=== PATIENT | male | born 1960 | race Caucasian/White ===

== ENCOUNTER 2021-06-03 18:50 | Inpatient (IN) | payer MEDICARE ==
[~2021-06-03] VITALS: Ht 177.8 cm; Wt 91.1 kg
[2021-06-03] MEDS ORDERED: methylPREDNISolone 125MG 2ML VIAL IV ONE (20:35)
[2021-06-03 20:49] LABS: BASO % 0.3 % (0.0-1.0); HEMATOCRIT 43.3 % (42.0-52.0); HEMOGLOBIN 15.1 g/dl (13.5-17.5); LYMPH # 0.6 10^3/uL (1.5-5.0); LYMPH % 5.5 % (24.0-44.0); MEAN CORPUSCULAR HEMOGLOBIN 31.5 pg (27.0-33.0); MEAN CORPUSCULAR HGB CONC 34.9 g/dl (32.0-36.5); MEAN CORPUSCULAR VOLUME 90.2 fl (80.0-96.0); MONO # 0.3 10^3/uL (0.0-0.8); MONO % 2.9 % (2.0-8.0); NEUTROPHILS # 9.5 10^3/uL (1.5-8.5); NEUTROPHILS % 88.7 % (36.0-66.0); PLATELET COUNT, AUTOMATED 243 10^3/uL (150-450); WHITE BLOOD COUNT 10.7 10^3/uL (4.0-10.0)
[2021-06-03] MEDS: COMBIVENT RESPIMAT 100-20MCG INHALER 4GM INH SCH ×3 (20:50→22:04)
[2021-06-03 20:53] LABS: RSV AMPLIFICATION NEGATIVE (NEGATIVE)
[2021-06-03 20:55] LABS: ALT/SGPT 237 U/L (12-78); BILIRUBIN,DIRECT 0.7 MG/DL (0.0-0.2); BILIRUBIN,TOTAL 1.1 MG/DL (0.2-1.0); BLOOD UREA NITROGEN 25 MG/DL (7-18); CALCIUM LEVEL 8.8 MG/DL (8.8-10.2); CARBON DIOXIDE LEVEL 25 MEQ/L (21-32); CHLORIDE LEVEL 98 MEQ/L (98-107); CREATININE FOR GFR 1.28 MG/DL (0.70-1.30); GLOMERULAR FILTRATION RATE > 60.0 (>49); GLUCOSE, FASTING 141 MG/DL (70-100); NT-PRO BNP 38 PG/ML (<125); SODIUM LEVEL 131 MEQ/L (136-145)
--- NOTE | 2021-06-03 21:00 | REP ---
INDICATION: DYSPNEA/COUGH COMPARISON: None. TECHNIQUE: Portable AP view of the chest FINDINGS: The mediastinum and cardiac silhouette are stable and within normal limits for portable technique. Bilateral infiltrates (left greater than right) noted. No effusion. No pneumothorax. Skeletal structures are intact. IMPRESSION: Multifocal infiltrates (left greater than right). <Electronically signed by Brando Douglas > 06/03/21 [id number]
[2021-06-03 22:07] LABS: ABG BASE EXCESS -0.5 (-2.0-2.0); ABG HCO3 20.9 MEQ/L (22.0-26.0); ABG O2 SATURATION 90.2 % (95.0-99.0); ABG PARTIAL PRESSURE CO2 26.5 mmHg (35.0-45.0); ABG PARTIAL PRESSURE O2 51.6 mmHg (75.0-100.0); ABG STANDARD HCO3 23.9 MEQ/L (22.0-26.0); ABG TOTAL CO2 21.7 MEQ/L (23.0-31.0); ABG pH (ARTERIAL) 7.514 UNITS (7.350-7.450)
[2021-06-03] MEDS ORDERED: ALEV220T22 PO (23:07)
[2021-06-03] MEDS ORDERED: [UNRECOGNIZED DRUG - CODE] PO (23:07)
[2021-06-03] MEDS ORDERED: ZINC1TAB2 PO (23:07)
[2021-06-03] MEDS ORDERED: C 50TAB PO (23:07)
[2021-06-03] MEDS ORDERED: D31000TA2 PO (23:07)
[2021-06-03] MEDS ORDERED: FAMO20TA PO (23:07)
[2021-06-03] MEDS ORDERED: HOME MED LIST COMPLETE! XX SCH (23:10)
--- NOTE | 2021-06-03 23:29 | HPEPDOC ---
[facility] Medical History & Physical Date of Admission Jun 03, 2021 Date of Service: Jun 03, 2021 Attending Physician: REMI SANTILLAN MD History and Physical TIME OF SERVICE: 1135pm CHIEF COMPLAINT: shortness of breath HISTORY OF PRESENT ILLNESS: a 60 yr old M presented w c/o shortness of breath, dry cough, a fever for about 10 days. He denies having n/v/d, loss of his sense of smell or taste. Several of his relatives have had mild COVID and their symptoms resolved, his symptoms didnt improve so he came to the ER. Neither he or his family members received COVID vaccines. 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 FAMILY HISTORY: reviewed with patient (both his parents who are in their 80s are still alive. ALLERGIES: Please see below. HOME MEDICATIONS: Please see below. PHYSICAL EXAMINATION: Vital Signs Date Time Temp Pulse Resp B/P (MAP) Pulse Ox O2 Delivery O2 Flow Rate FiO2 06/03/21 18:51 99.4 150 28 132/87 (102) 84 Room Air 06/03/21 20:35 6.0 99 GENERAL APPEARANCE: well-nourished and developed /NAD HEENT: EOMI / MM pink but dry / NC in place CARDIOVASCULAR: tachycardic / NMRG LUNGS: coughing occasionally / not using accessory muscles / air entry equal bi laterally / lungs are CTAB ABDOMEN: contour convex MUSCULOSKELETAL: NCAT INTEGUMENT: he is not pale, flushed or diaphoretic NEUROLOGICAL: CN 2-12 grossly intact /speech not dysarthric PSYCHIATRIC: A&Ox 3 able to understand and follow all commands. LABORATORY DATA: IMAGING: Chest xray IMPRESSION: Multifocal infiltrates (left greater than right). MICROBIOLOGY: COVID + ASSESSMENT: is a 60 yr old M w a hx of obesity who is admitted for hypoxemia 2/2 COVID 19 PNA. PLAN: 1 Hypoxemia 2/2 COVID-19 ABG reviewed Plan: admit to PCU / continuous pulse ox / supplemental O2 (target O2 sats between 92-95%) / contact & air borne precautions / instructed the patient to lie down in a prone position as much as possible / f/u repeat plts (if low indicates bad prognosis), CRP (if high indicates bad prognosis), INR, BMP (40% of pts with COVID develop EULALIA) , INR, D-dimer, PT, PTT, fibrinogen (if patient has DIC indicates bad prognosis), ferritin, LDH, troponins (if elevated will need Echo to r/o viral cardiomyopathy) / despite the infiltrates on chest xray I think this is a viral PNA, I doubt he has superimposed bacterial PNA bc he doesnt have a fever or leucocytosis nevertheless we will check pro-calcitonin / blood cx are pending / albuterol PRN for dyspnea / dexamethasone & Remdesivir / will ask the day time team to consult the Pulmonology service to start Baricitinib or or Tocilizumab & because he is already on HFNC and at high risk of deteriorating 2 SIRS He has tachycardia and tachypnea that are likely reactive due to the viral infection. The lactic acid is wnl Plan: monitor vitals / IVF / f/u procalcitonin and blood cx 3 Class 1 obesity -complicates care Plan: check A1C to screen for DM DVT px w medium dose ASA and Lovenox pending Coag studies Dispo: home after at least 2 midnights stay Home Medications Scheduled Ascorbic Acid (Vitamin C) 500 Mg Tablet, 500 MG PO DAILY Cholecalciferol (Vitamin D3) (Vitamin D3) 1,000 Unit Tablet, 1,000 UNITS PO DAILY Famotidine (Famotidine) 20 Mg Tablet, 40 MG PO QHS Multivit-Min/Ascorbic/Herb 124 (Airborne Chewable Tablet) 250 Mg-87.5 Mg Tab.chew, 1 CHEW PO DAILY Zinc (Zinc) 50 Mg Tablet, 50 MG PO DAILY Scheduled PRN Naproxen Sodium (Aleve) 220 Mg Tablet, 220 MG PO BID PRN for FEVER Allergies Coded Allergies: No Known Allergies (Unverified , 06/03/21) A-FIB/CHADSVASC A-FIB History Current/History of A-Fib/PAF?: No Current PO Anticoag Therapy: No REMI SANTILLNA MD Jun 03, 2021 23:29
[2021-06-04] VITALS (13 sets, daily range): BP systolic 113–130; BP diastolic 60–83; O2SAT 87–97
[2021-06-04] MEDS ORDERED: SODIUM CHLORIDE 0.9% 1000ML IV STA (00:29)
[2021-06-04] MEDS ORDERED: ALBUTEROL 90 MCG/ACT 8GM HFA INHALER INH PRN (00:30)
[2021-06-04 01:17] LABS: MAGNESIUM LEVEL 1.7 MG/DL (1.8-2.4)
[2021-06-04 01:35] LABS: APPEARANCE, URINE CLEAR (CLEAR); BACTERIA, URINE AUTO NEGATIVE (NEGATIVE); BILIRUBIN, URINE AUTO NEGATIVE (NEGATIVE); BLOOD, URINE BLOOD 2+ (NEGATIVE); COLOR, URINE YELLOW (YELLOW); GLUCOSE, URINE (UA) AUTO NEGATIVE (NEGATIVE); KETONE, URINE AUTO NEGATIVE (NEGATIVE); LEUKOCYTE ESTERASE, URINE AUTO NEGATIVE (NEGATIVE); NITRITE, URINE AUTO NEGATIVE (NEGATIVE); PROTEIN, URINE AUTO 2+ mg/dL (NEGATIVE); RBC, URINE AUTO 0 /HPF (0-3); SPECIFIC GRAVITY URINE AUTO 1.014 (1.002-1.035); SQUAMOUS EPITHELIAL CELL UR AU 0 /HPF (0-6); UROBILINOGEN, URINE AUTO 0.2 mg/dL (0.0-2.0); WBC, URINE AUTO 2 /HPF (0-3)
[2021-06-04 03:06] LABS: FERRITIN 15546 NG/ML (26-388)
[2021-06-04] MEDS ORDERED: REMDESIVIR 200 MG in NS 250 ML IV ONE (05:00)
[2021-06-04 06:29] LABS: BASO % 0.3 % (0.0-1.0); HEMATOCRIT 39.4 % (42.0-52.0); HEMOGLOBIN 13.6 g/dl (13.5-17.5); LYMPH # 0.5 10^3/uL (1.5-5.0); LYMPH % 4.8 % (24.0-44.0); MEAN CORPUSCULAR HEMOGLOBIN 31.1 pg (27.0-33.0); MEAN CORPUSCULAR HGB CONC 34.5 g/dl (32.0-36.5); MONO # 0.3 10^3/uL (0.0-0.8); MONO % 2.8 % (2.0-8.0); NEUTROPHILS # 8.5 10^3/uL (1.5-8.5); NEUTROPHILS % 89.3 % (36.0-66.0); PLATELET COUNT, AUTOMATED 225 10^3/uL (150-450); RED BLOOD COUNT 4.38 10^6/uL (4.30-6.10); WHITE BLOOD COUNT 9.5 10^3/uL (4.0-10.0)
--- NOTE | 2021-06-04 06:42 | ECGEPIP ---
[facility] - ED Test Date: 2021-06-03 Pat Name: Umesh Clancy Department: Room: - Gender: Male State Manager: lexi : 1960 Requested By: RADHA Rankin Order Number: [id number] Reading MD: David Gonzalez Measurements Intervals [place] Rate: 131 P: 22 WA: 138 QRS: -36 QRSD: 86 T: -12 QT: 308 QTc: 454 Interpretive Statements Sinus tachycardia Left axis deviation INCOMPLETE RIGHT BUNDLE BRANCH BLOCK Minimal voltage criteria for LVH, may be normal variant ( R in aVL ) NO PRIORS FOR COMPARISON Electronically Signed on 06-04-2021 6:41:58 EST by David Gonzalez
[2021-06-04 06:44] LABS: INR 1.06; PROTHROMBIN TIME 14.2 SECONDS (12.7-14.5)
[2021-06-04 06:45] LABS: PARTIAL THROMBOPLASTIN TIME 41.6 SECONDS (25.9-37.0)
[2021-06-04 06:47] LABS: D-DIMER QUANT 1756.47 ng/ml (<500)
[2021-06-04 06:55] LABS: BLOOD UREA NITROGEN 20 MG/DL (7-18); CARBON DIOXIDE LEVEL 23 MEQ/L (21-32); CHLORIDE LEVEL 103 MEQ/L (98-107); CREATININE FOR GFR 1.08 MG/DL (0.70-1.30); GLOMERULAR FILTRATION RATE > 60.0 (>49); GLUCOSE, FASTING 213 MG/DL (70-100); MAGNESIUM LEVEL 2.4 MG/DL (1.8-2.4); SODIUM LEVEL 134 MEQ/L (136-145)
[2021-06-04 06:56] LABS: HEMOGLOBIN A1c 5.6 %
[2021-06-04] MEDS ORDERED: SODIUM CHLORIDE 0.9% INJ 10 ML SYR IV ONE (07:00)
[2021-06-04] MEDS: BENZONATATE 100MG CAPSULE PO SCH ×3 (07:10→21:57)
[2021-06-04] MEDS: ASPIRIN 81MG ENTERIC TABLET PO SCH (08:40)
[2021-06-04] MEDS: BARICITINIB 2MG TABLET (OLUMIANT) FOR EUA PO SCH (08:41)
[2021-06-04] MEDS: ENOXAPARIN 60MG/0.6ML SYRINGE (J1650 PER 10MG) SC SCH ×2 (08:41→21:58)
[2021-06-04] MEDS: dexameTHASONE 4 MG/ML 1ML VIAL (J1100 PER 1MG) IV SCH (08:41)
[2021-06-04] MEDS: cefTRIAXone SOD 2 GM in D5W MINI-BAG PLUS 50 ML IV SCH (11:05)
[2021-06-04] MEDS: AZITHROMYCIN INJ 500 MG, VIAL MATE ADAPTER 1 EACH in NS 250 ML IV SCH (11:36)
--- NOTE | 2021-06-04 13:28 | IPNPDOC ---
Text Note Date of Service The patient was seen on 06/04/21. NOTE Subjective: Patient is a 60-year-old male who presented to the hospital with chief complaint of shortness of breath and a dry cough and fever for about 10 days. Patient denies any nausea, vomiting, diarrhea nor has he lost his sense of smell or taste. Patient has several relatives with mild Covid and they are since resolved, his symptoms did not improve so he came to the emergency department. Either he or his family members have received Covid vaccines. Patient states he is feeling well today but is requiring max Vapotherm to maintain oxygen saturations above 90%. Review of systems: General: Patient denies fevers HEENT: Patient denies headaches Cardiovascular: Patient denies chest pain Respiratory: Patient denies shortness of breath, cough GI: Patient denies abdominal pain, nausea, vomiting, diarrhea : Patient denies increased frequency or pain with urination Extremities: Patient denies swelling or pain in extremities Neurological: Patient denies numbness or tingling in legs Physical exam: Vitals: See below General: Alert and oriented male patient who was laying prone when I walked in talking with his fiance on the phone. Patient did not appear to be in any acute distress. HEENT: Normocephalic, atraumatic, moist mucous membranes. Neck: No lymphadenopathy or thyromegaly Cardiac: Regular rate and rhythm, no murmurs, normal S1, normal S2 Pulm: Clear to auscultation bilaterally. No wheezes, rhonchi, rales Abd: Nondistended, nontender to palpation, normal bowel sounds Ext: No edema bilateral lower extremities Labs: See below Imaging: No new imaging is been performed, chest x-ray from the evening before was reviewed and was reported to show multifocal infiltrates (left greater than right) Assessment/plan: 60-year-old male with a history of obesity is admitted for acute hypoxic respiratory failure secondary COVID-19 pneumonia 1. Acute hypoxic respiratory failure secondary to COVID-19 pneumonia. Patient will continue with remdesivir, dexamethasone, and baricitinib. We will continue to monitor the patient's oxygen saturation. Strongly encouraged the patient to prone as much as possible. I explained the reasoning and the benefits of proning to the patient. Patient has an elevated procalcitonin so ceftriaxone azithromycin have been started at this time. We will continue to monitor patient patient does state that if he gets to the point where he needs to be intubated, he will except as per patient. 2. SIRS criteria. Patient was tachycardic and tachypneic likely reactive due to viral infection. Lactic acid within normal limits. Patient did receive sepsis fluid bolus in the emergency department. 3. Class I obesity which is complicating the patient's care. DVT Prophylaxis: Lovenox Disposition: Pending improvement in oxygenation. VS,Fishbone, I+O VS, Fishbone, I+O Laboratory Tests 06/03/21 19:53 06/04/21 05:44 Vital Signs Date Time Temp Pulse Resp B/P (MAP) Pulse Ox O2 Delivery O2 Flow Rate FiO2 06/04/21 12:00 40.0 100 06/04/21 12:00 98.0 111 21 129/65 (86) 92 HVNI-Vapotherm FERDINANDMENDEL Jun 04, 2021 13:28
[2021-06-04] MEDS ORDERED: CALCIUM CARBONATE 500 MG CHEW U/D PO ONE (17:00)
[2021-06-04] MEDS ORDERED: VANCOMYCIN HCL 1,000 MG, VIAL MATE ADAPTER 1 EACH in NS 250 ML IV ONE (21:00)
--- NOTE | 2021-06-04 21:01 | ECGEPIP ---
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
[2021-06-05] VITALS (16 sets, daily range): BP systolic 117–139; BP diastolic 59–90; O2SAT 83–99
[2021-06-05] MEDS: REMDESIVIR 100 MG in NS 250 ML IV SCH (04:15)
[2021-06-05] MEDS: BENZONATATE 100MG CAPSULE PO SCH ×3 (05:53→20:31)
[2021-06-05] MEDS: SODIUM CHLORIDE 0.9% INJ 10 ML SYR IV SCH (05:53)
[2021-06-05 08:31] LABS: INR 1.03; PROTHROMBIN TIME 13.9 SECONDS (12.7-14.5)
[2021-06-05 08:32] LABS: PARTIAL THROMBOPLASTIN TIME 37.2 SECONDS (25.9-37.0)
[2021-06-05] MEDS: dexameTHASONE 4 MG/ML 1ML VIAL (J1100 PER 1MG) IV SCH (08:35)
[2021-06-05] MEDS: ASPIRIN 81MG ENTERIC TABLET PO SCH (08:35)
[2021-06-05] MEDS: BARICITINIB 2MG TABLET (OLUMIANT) FOR EUA PO SCH (08:35)
[2021-06-05] MEDS: ENOXAPARIN 60MG/0.6ML SYRINGE (J1650 PER 10MG) SC SCH ×2 (08:36→20:32)
[2021-06-05] MEDS ORDERED: PANTOPRAZOLE 40MG TAB (PROTONIX) PO SCH (09:00)
[2021-06-05 09:20] LABS: ALBUMIN 2.3 GM/DL (3.2-5.2); BILIRUBIN,DIRECT 0.3 MG/DL (0.0-0.2); BILIRUBIN,TOTAL 0.5 MG/DL (0.2-1.0); TOTAL PROTEIN 5.9 GM/DL (6.4-8.2)
[2021-06-05] MEDS: cefTRIAXone SOD 2 GM in D5W MINI-BAG PLUS 50 ML IV SCH (11:54)
[2021-06-05] MEDS: AZITHROMYCIN INJ 500 MG, VIAL MATE ADAPTER 1 EACH in NS 250 ML IV SCH (13:09)
[2021-06-05] MEDS: CALCIUM CARBONATE 500 MG CHEW U/D PO PRN ×2 (13:41→20:31)
--- NOTE | 2021-06-05 15:16 | IPNPDOC ---
Text Note Date of Service The patient was seen on 06/05/21. NOTE Subjective: Patient is a 60-year-old male presented to hospital with chief complaint shortness of breath and dry cough and a fever for about 10 days. Says he is feeling better. Patient was diagnosed with COVID-19. Patient is on Vapotherm therapy and has been proning. Patient denies losing his sense of smell or taste. Patient is not vaccinated and does have multiple sick contacts. Review of systems: General: Patient denies fevers HEENT: Patient denies headaches Cardiovascular: Patient denies chest pain Respiratory: Patient reports dry cough but does not feel short of breath GI: Patient denies abdominal pain, nausea, vomiting, diarrhea : Patient denies increased frequency or pain with urination Extremities: Patient denies swelling or pain in extremities Neurological: Patient denies numbness or tingling in legs Physical exam: Vitals: See below General: Alert and oriented male patient who was laying on his left side when I walked into the room. Patient had Vapotherm nasal cannula oxygen in place and did not appear to be in any acute distress. HEENT: Normocephalic, atraumatic, moist mucous membranes. Neck: No lymphadenopathy or thyromegaly Cardiac: Regular rate and rhythm, no murmurs, normal S1, normal S2 Pulm: Clear to auscultation bilaterally. No wheezes, rhonchi, rales Abd: Nondistended, nontender to palpation, normal bowel sounds Ext: No edema bilateral lower extremities Labs: See below Imaging: No new imaging is been performed Assessment/plan: 60-year-old male with a history of obesity was admitted for acute hypoxic respiratory failure secondary to COVID-19 pneumonia 1. Acute hypoxic respiratory failure secondary to COVID-19 pneumonia. Continue with remdesivir, dexamethasone and baricitinib. Continue to monitor patient's oxygen saturations. Strongly encourage the patient to prone as much as possible. I explained the reasoning and the benefits of proning to the patient. Patient had an elevated procalcitonin so ceftriaxone azithromycin have been started at this time. Continue to monitor the patient. 2. SIRS criteria. Patient was tachycardic and tachypneic likely reactive due to viral infection however, patient does have bacteremia although the results of the cultures are still pending. Patient has a normal lactic acid and did receive sepsis bolus in the emergency department. 3. Bacteremia with 2 blood cultures positive for gram-positive cocci in pairs and clusters. Repeat blood cultures were ordered and performed. Vancomycin has been given to the patient. We will continue to monitor. 4. Class I obesity, complicating the patient's care DVT Prophylaxis: Lovenox Disposition: Pending improvement in oxygenation VS,Fishbone, I+O VS, Fishbone, I+O Vital Signs Date Time Temp Pulse Resp B/P (MAP) Pulse Ox O2 Delivery O2 Flow Rate FiO2 06/05/21 12:00 90 HVNI-Vapotherm 35.0 100 06/05/21 11:54 97.6 101 20 117/60 (79) I&O- Last 24 Hours up to 6 AM 06/05/21 06:00 Intake Total 2335 ml Output Total 1875 ml Balance [address]RE[address]ER DO Jun 05, 2021 15:16
[2021-06-06] VITALS (8 sets, daily range): BP systolic 123–139; BP diastolic 63–90; O2SAT 92–96
[2021-06-06] MEDS: REMDESIVIR 100 MG in NS 250 ML IV SCH (05:15)
[2021-06-06] MEDS: BENZONATATE 100MG CAPSULE PO SCH ×3 (05:15→20:28)
[2021-06-06] MEDS: SODIUM CHLORIDE 0.9% INJ 10 ML SYR IV SCH (05:16)
[2021-06-06] MEDS: CALCIUM CARBONATE 500 MG CHEW U/D PO PRN ×3 (05:31→20:28)
[2021-06-06 09:16] LABS: BLOOD UREA NITROGEN 26 MG/DL (7-18); CALCIUM LEVEL 8.2 MG/DL (8.8-10.2); CARBON DIOXIDE LEVEL 24 MEQ/L (21-32); CHLORIDE LEVEL 107 MEQ/L (98-107); CREATININE FOR GFR 0.91 MG/DL (0.70-1.30); GLOMERULAR FILTRATION RATE > 60.0 (>49); GLUCOSE, FASTING 131 MG/DL (70-100); MAGNESIUM LEVEL 2.5 MG/DL (1.8-2.4); POTASSIUM SERUM 5.5 MEQ/L (3.5-5.1); SODIUM LEVEL 139 MEQ/L (136-145)
[2021-06-06] MEDS: ASPIRIN 81MG ENTERIC TABLET PO SCH (09:41)
[2021-06-06] MEDS: ENOXAPARIN 60MG/0.6ML SYRINGE (J1650 PER 10MG) SC SCH ×2 (09:41→20:28)
[2021-06-06] MEDS: BARICITINIB 2MG TABLET (OLUMIANT) FOR EUA PO SCH (09:41)
[2021-06-06] MEDS: dexameTHASONE 4 MG/ML 1ML VIAL (J1100 PER 1MG) IV SCH (09:41)
[2021-06-06] MEDS: PANTOPRAZOLE 40MG TAB (PROTONIX) PO SCH (09:41)
[2021-06-06] MEDS: cefTRIAXone SOD 2 GM in D5W MINI-BAG PLUS 50 ML IV SCH (09:42)
--- NOTE | 2021-06-06 10:34 | IPNPDOC ---
Text Note Date of Service The patient was seen on 06/06/21. NOTE Subjective: Patient is a 60-year-old male presented hospital chief complaint shortness of breath and dry cough with a fever for about 10 days prior to his admission. He says he is feeling better today. Patient was diagnosed with COVID-19. Patient has been on Vapotherm therapy and has been proning. Patient denies loss of sense of smell or taste. Patient is not vaccinated does have multiple sick contacts. Earlier this morning, patient did have an episode of acute hypoxia while on maxed those Vapotherm and did require a nonrebreather mask be placed over his Vapotherm. Patient did recover and had been doing better later on in the morning. Review of systems: General: Patient denies fevers HEENT: Patient denies headaches Cardiovascular: Patient denies chest pain Respiratory: Patient reports mild shortness of breath GI: Patient denies abdominal pain, nausea, vomiting, diarrhea : Patient denies increased frequency or pain with urination Extremities: Patient denies swelling or pain in extremities Neurological: Patient denies numbness or tingling in legs Physical exam: Vitals: See below General: Alert and oriented male patient who was laying on his left side when I walked in the room. Patient Vapotherm nasal cannula oxygen with nonrebreather mask on walked in. Patient did not appear to be in any acute distress. HEENT: Normocephalic, atraumatic, moist mucous membranes. Neck: No lymphadenopathy or thyromegaly Cardiac: Regular rate and rhythm, no murmurs, normal S1, normal S2 Pulm: Clear to auscultation bilaterally. No wheezes, rhonchi, rales Abd: Nondistended, nontender to palpation, normal bowel sounds Ext: No edema bilateral lower extremities Labs: See below Imaging: No new imaging is been performed Assessment/plan: 60-year-old male with a history of obesity was admitted for acute hypoxic respiratory failure secondary to COVID-19 pneumonia 1. Acute hypoxic respiratory failure secondary to COVID-19 pneumonia. Continue remdesivir, dexamethasone and baricitinib. Continue to monitor the patient's oxygen saturation. Patient had nonrebreather oxygen on when I walked into the room. I did remove this and patient's oxygen saturations remained in the low 90s. Patient was encouraged to prone as much as possible and can be upright for about 20 minutes at a time before going back to proning. The more the patient prone is the better off his outcome will most likely be. I again encouraged the patient to try and spend most of the day on his stomach today. Patient was doing well with just max Vapotherm well proning and saturating in the mid 90s. Continue ceftriaxone and azithromycin at this time due to elevated procalcitonin. 2. SIRS criteria. Patient has been mildly tachycardic and tachypneic which is likely due to viral infection although patient does have bacteremia and the results of the cultures are pending. Normal lactic acid. 3. Bacteremia with 2 blood cultures positive for gram-positive cocci in pairs and clusters. Repeat blood cultures have been ordered and are performed. Vancomycin was started. 4. Transaminitis. This may be secondary to COVID-19 infection. This is decreased and we will continue to monitor. 5. Hyperkalemia. Patient does have hyperkalemia on labs today however, the specimen appeared hemolyzed. We will repeat the potassium level today. DVT Prophylaxis: Lovenox Disposition: Pending improvement patient's oxygenation. Patient status is tenuous at this time but I do not believe he needs ICU level care and once he is requiring Vapotherm with nonrebreather to maintain oxygen saturations above 90%. If this is the case, patient will be transferred to the ICU. VS,Anselmo, I+O VSAnselmo, I+O Laboratory Tests 06/06/21 07:20 Vital Signs Date Time Temp Pulse Resp B/P (MAP) Pulse Ox O2 Delivery O2 Flow Rate FiO2 06/06/21 08:09 24 91 HVNI-Vapotherm 40.0 100 06/06/21 07:26 97.2 94 139/90 (106) I&O- Last 24 Hours up to 6 AM 06/06/21 06:00 Intake Total 360 ml Output Total 1700 ml Balance -[address]ER DO Jun 06, 2021 10:34
[2021-06-06] MEDS: AZITHROMYCIN INJ 500 MG, VIAL MATE ADAPTER 1 EACH in NS 250 ML IV SCH (10:52)
[2021-06-06 11:40] LABS: BASO # 0.1 10^3/uL (0.0-0.2); BASO % 0.4 % (0.0-1.0); HEMATOCRIT 40.8 % (42.0-52.0); HEMOGLOBIN 14.1 g/dl (13.5-17.5); LYMPH # 0.8 10^3/uL (1.5-5.0); LYMPH % 5.9 % (24.0-44.0); MEAN CORPUSCULAR HEMOGLOBIN 31.4 pg (27.0-33.0); MEAN CORPUSCULAR HGB CONC 34.6 g/dl (32.0-36.5); MEAN CORPUSCULAR VOLUME 90.9 fl (80.0-96.0); MONO # 1.1 10^3/uL (0.0-0.8); MONO % 7.9 % (2.0-8.0); PLATELET COUNT, AUTOMATED 385 10^3/uL (150-450); RED BLOOD COUNT 4.49 10^6/uL (4.30-6.10); WHITE BLOOD COUNT 13.2 10^3/uL (4.0-10.0)
[2021-06-06 11:41] LABS: HEMATOCRIT 41.1 % (42.0-52.0); HEMOGLOBIN 13.9 g/dl (13.5-17.5); MEAN CORPUSCULAR HEMOGLOBIN 31.5 pg (27.0-33.0); MEAN CORPUSCULAR HGB CONC 33.8 g/dl (32.0-36.5); MEAN CORPUSCULAR VOLUME 93.2 fl (80.0-96.0); PLATELET COUNT, AUTOMATED 323 10^3/uL (150-450); RED BLOOD COUNT 4.41 10^6/uL (4.30-6.10); WHITE BLOOD COUNT 11.6 10^3/uL (4.0-10.0)
[2021-06-07] VITALS (10 sets, daily range): BP systolic 119–138; BP diastolic 58–66; O2SAT 89–94
[2021-06-07] MEDS: REMDESIVIR 100 MG in NS 250 ML IV SCH (04:41)
[2021-06-07] MEDS: BENZONATATE 100MG CAPSULE PO SCH ×3 (06:12→21:20)
[2021-06-07] MEDS: SODIUM CHLORIDE 0.9% INJ 10 ML SYR IV SCH (06:13)
[2021-06-07] MEDS: CALCIUM CARBONATE 500 MG CHEW U/D PO PRN (06:16)
[2021-06-07 07:26] LABS: HEMATOCRIT 41.5 % (42.0-52.0); HEMOGLOBIN 14.4 g/dl (13.5-17.5); MEAN CORPUSCULAR HEMOGLOBIN 31.2 pg (27.0-33.0); MEAN CORPUSCULAR HGB CONC 34.7 g/dl (32.0-36.5); PLATELET COUNT, AUTOMATED 406 10^3/uL (150-450); RED BLOOD COUNT 4.61 10^6/uL (4.30-6.10); WHITE BLOOD COUNT 13.6 10^3/uL (4.0-10.0)
[2021-06-07 07:40] LABS: INR 1.24
[2021-06-07 07:41] LABS: PARTIAL THROMBOPLASTIN TIME 38.3 SECONDS (25.9-37.0)
[2021-06-07 07:45] LABS: BLOOD UREA NITROGEN 26 MG/DL (7-18); CARBON DIOXIDE LEVEL 22 MEQ/L (21-32); CHLORIDE LEVEL 105 MEQ/L (98-107); CREATININE FOR GFR 0.87 MG/DL (0.70-1.30); GLOMERULAR FILTRATION RATE > 60.0 (>49); GLUCOSE, FASTING 97 MG/DL (70-100); MAGNESIUM LEVEL 2.3 MG/DL (1.8-2.4); POTASSIUM SERUM 4.1 MEQ/L (3.5-5.1); SODIUM LEVEL 137 MEQ/L (136-145)
[2021-06-07 08:14] LABS: ALBUMIN 2.4 GM/DL (3.2-5.2); BILIRUBIN,DIRECT 0.3 MG/DL (0.0-0.2); BILIRUBIN,TOTAL 0.8 MG/DL (0.2-1.0); TOTAL PROTEIN 6.9 GM/DL (6.4-8.2)
[2021-06-07] MEDS: ASPIRIN 81MG ENTERIC TABLET PO SCH (08:20)
[2021-06-07] MEDS: BARICITINIB 2MG TABLET (OLUMIANT) FOR EUA PO SCH (08:20)
[2021-06-07] MEDS: PANTOPRAZOLE 40MG TAB (PROTONIX) PO SCH (08:20)
[2021-06-07] MEDS: ENOXAPARIN 60MG/0.6ML SYRINGE (J1650 PER 10MG) SC SCH ×2 (08:20→21:20)
[2021-06-07] MEDS: dexameTHASONE 4 MG/ML 1ML VIAL (J1100 PER 1MG) IV SCH (08:20)
[2021-06-07] MEDS ORDERED: SODIUM CHLORIDE NASAL 0.65% SPRAY BTL (OCEAN) PRN (09:05)
--- NOTE | 2021-06-07 10:35 | IPNPDOC ---
Text Note Date of Service The patient was seen on 06/07/21. NOTE Subjective: Patient is a 60-year-old male presented to the hospital with a chief complaint of shortness of breath and dry cough with a fever for about 10 days prior to his admission. Patient states he is feeling better however, he is requiring max Vapotherm with occasional use of nonrebreather over it in order to maintain his oxygen saturations. When laying prone, patient is comfortable and his oxygen saturations do recover. Patient does not have any complaints at this time. Review of systems: General: Patient denies fevers HEENT: Patient denies headaches Cardiovascular: Patient denies chest pain Respiratory: Patient denies shortness of breath, cough GI: Patient denies abdominal pain, nausea, vomiting, diarrhea : Patient denies increased frequency or pain with urination Extremities: Patient denies swelling or pain in extremities Neurological: Patient denies numbness or tingling in legs Physical exam: Vitals: See below General: Alert and oriented male patient who was laying prone when I walked in the room. Patient had a Vapotherm nasal cannula in place. Patient does not appear to be in acute distress. HEENT: Normocephalic, atraumatic, moist mucous membranes. Neck: No lymphadenopathy or thyromegaly Cardiac: Regular rate and rhythm, no murmurs, normal S1, normal S2 Pulm: Clear to auscultation bilaterally. No wheezes, rhonchi, rales Abd: Nondistended, nontender to palpation, normal bowel sounds Ext: No edema bilateral lower extremities Labs: See below Imaging: No new imaging is been performed Assessment/plan: 60-year-old male with a history of obesity was admitted for acute hypoxic respiratory failure secondary to COVID-19 pneumonia 1. Acute hypoxic respiratory failure secondary to COVID-19 pneumonia. Continue remdesivir, dexamethasone and baricitinib. Patient does require the nonrebreather over Vapotherm occasionally however, the patient does lay prone with max Vapotherm, patient does maintain oxygen saturations in the mid 90s. We will continue ceftriaxone azithromycin at this time as patient did have an elevated procalcitonin. Patient is still in a very tenuous position and if he continues to require nonrebreather over the Vapotherm, patient will need to be transferred to the intensive care unit. I did explain this to the patient and we will continue to monitor. 2. SIRS criteria. Patient has been mildly tachycardic and tachypneic which is most likely due to viral infection although patient does have an elevated procalcitonin with a normal lactic acid. Patient's heart rate does recover however, every time I am in the room, I think the patient is becoming nervous about what I am saying to him because his heart rate does increase by about 10 to 20 bpm and then when I walked out of the room and watch the patient's sr. manager, the patient's heart rate does come back down to a baseline of 80-90. 3. Bacteremia. One of the blood cultures came back positive for Staphylococcus hemolyticus, the other one is still pending. This appears to be contaminants however, we will continue to monitor. 4. Transaminitis. Secondary to COVID-19 infection most likely. We will continue to monitor. 5. Hyperkalemia, this was due to hemolysis. This is returned to normal limits. DVT Prophylaxis: Lovenox Disposition: Pending improvement in the patient's oxygenation. VS,Ericbone, I+O VS, Ericbone, I+O Laboratory Tests 06/06/21 10:44 06/07/21 06:45 Vital Signs Date Time Temp Pulse Resp B/P (MAP) Pulse Ox O2 Delivery O2 Flow Rate FiO2 06/07/21 08:00 89 HVNI-Vapotherm 40.0 100 06/07/21 07:23 97.2 97 20 133/61 (85) I&O- Last 24 Hours up to 6 AM 06/07/21 06:00 Intake Total 1440 ml Output Total 1750 ml Balance -310 [address]RE[address]ER DO Jun 07, 2021 10:35
[2021-06-07] MEDS: cefTRIAXone SOD 2 GM in D5W MINI-BAG PLUS 50 ML IV SCH (10:57)
[2021-06-07] MEDS: AZITHROMYCIN INJ 500 MG, VIAL MATE ADAPTER 1 EACH in NS 250 ML IV SCH (11:45)
[2021-06-08] VITALS (11 sets, daily range): BP systolic 120–127; BP diastolic 60–71; O2SAT 89–93
[2021-06-08] MEDS: REMDESIVIR 100 MG in NS 250 ML IV SCH (05:31)
[2021-06-08] MEDS: BENZONATATE 100MG CAPSULE PO SCH ×3 (05:34→21:35)
[2021-06-08] MEDS: SODIUM CHLORIDE 0.9% INJ 10 ML SYR IV SCH (06:56)
[2021-06-08 07:57] LABS: HEMATOCRIT 41.7 % (42.0-52.0); HEMOGLOBIN 14.5 g/dl (13.5-17.5); MEAN CORPUSCULAR HEMOGLOBIN 31.4 pg (27.0-33.0); MEAN CORPUSCULAR HGB CONC 34.8 g/dl (32.0-36.5); MEAN CORPUSCULAR VOLUME 90.3 fl (80.0-96.0); PLATELET COUNT, AUTOMATED 423 10^3/uL (150-450); RED BLOOD COUNT 4.62 10^6/uL (4.30-6.10); WHITE BLOOD COUNT 14.1 10^3/uL (4.0-10.0)
[2021-06-08 08:28] LABS: BLOOD UREA NITROGEN 25 MG/DL (7-18); CALCIUM LEVEL 8.1 MG/DL (8.8-10.2); CARBON DIOXIDE LEVEL 23 MEQ/L (21-32); CHLORIDE LEVEL 103 MEQ/L (98-107); CREATININE FOR GFR 0.85 MG/DL (0.70-1.30); GLOMERULAR FILTRATION RATE > 60.0 (>49); GLUCOSE, FASTING 81 MG/DL (70-100); MAGNESIUM LEVEL 2.2 MG/DL (1.8-2.4); POTASSIUM SERUM 4.6 MEQ/L (3.5-5.1); SODIUM LEVEL 136 MEQ/L (136-145)
[2021-06-08] MEDS: BARICITINIB 2MG TABLET (OLUMIANT) FOR EUA PO SCH (08:46)
[2021-06-08] MEDS: dexameTHASONE 4 MG/ML 1ML VIAL (J1100 PER 1MG) IV SCH (08:47)
[2021-06-08] MEDS: PANTOPRAZOLE 40MG TAB (PROTONIX) PO SCH (08:47)
[2021-06-08] MEDS: ENOXAPARIN 60MG/0.6ML SYRINGE (J1650 PER 10MG) SC SCH ×2 (08:47→21:35)
[2021-06-08] MEDS: ASPIRIN 81MG ENTERIC TABLET PO SCH (08:47)
[2021-06-08] MEDS: cefTRIAXone SOD 2 GM in D5W MINI-BAG PLUS 50 ML IV SCH (11:26)
--- NOTE | 2021-06-08 11:45 | IPNPDOC ---
Text Note Date of Service The patient was seen on 06/08/21. NOTE Subjective: Patient is a 60-year-old male presented to hospital with chief c omplaint of shortness of breath and dry cough with a fever for about 10 days prior to his admission. Patient states he is feeling better however, he is requiring max Vapotherm with the occasional use of a nonrebreather over it in order to maintain his oxygen saturations. While lying prone, patient is comfortable and oxygen saturations do recover. Patient does not have any complaints at this time. Review of systems: General: Patient denies fevers HEENT: Patient denies headaches Cardiovascular: Patient denies chest pain Respiratory: Patient reports mild shortness of breath especially with exertion and a nonproductive cough. GI: Patient denies abdominal pain, nausea, vomiting, diarrhea : Patient denies increased frequency or pain with urination Extremities: Patient denies swelling or pain in extremities Neurological: Patient denies numbness or tingling in legs Physical exam: Vitals: See below General: Alert and oriented male patient who was laying prone when I walked in the room. Patient had Vapotherm nasal cannula in place. Patient does not appear to be in any acute distress. HEENT: Normocephalic, atraumatic, moist mucous membranes. Neck: No lymphadenopathy or thyromegaly Cardiac: Regular rate and rhythm, no murmurs, normal S1, normal S2 Pulm: Diminished breath sounds bilaterally. Abd: Nondistended, nontender to palpation, normal bowel sounds Ext: No edema bilateral lower extremities Labs: See below Imaging: No new imaging has been performed. Assessment/plan: 60-year-old male with a history of obesity was admitted for acute hypoxic respiratory failure secondary to COVID-19 pneumonia. 1. Acute hypoxic respiratory failure secondary COVID-19. Continue remdesivir, dexamethasone and baricitinib. Patient has not been requiring the nonrebreather as much however, when he does sit up and move around, he does desaturate significantly but once he lays prone, this does improve. Patient had elevated procalcitonin level on admission we will continue ceftriaxone azithromycin at this time. Patient is still in a very tenuous position and if he continues to require nonrebreather over Vapotherm consistently especially while lying prone, patient will need to be transferred to the intensive care unit. I did explain this to the patient and we will continue to monitor. I did speak with the patient's fianc as well and convey this message to her. 2. SIRS criteria. Patient has been mildly tachycardic and tachypneic which is most likely due to viral infection although the patient does have an elevated procalcitonin with a normal lactic acid level on admission. Patient's heart rate does remain in the normal range however, when I walked into the room, the patient's heart rate does increase by about 10 to 20 bpm. When I walked out of the room and watch the patient's heart rate on the monitor, the patient's heart rate does come back down to baseline of 80-90. 3. Bacteremia. Patient had 2 blood cultures come back +1 for Staphylococcus hemolyticus and 1 for Staph epidermidis. These are most likely contaminants as the blood cultures that were drawn after this were negative. We will continue with the patient's antibiotics of ceftriaxone at this [facility] for possible bacterial pneumonia. 4. Transaminitis. This is most likely secondary to the patient's COVID-19 infection. We will continue to monitor with every other day liver panels. 5. Hyperkalemia. This was due to hemolysis and this is returned to normal limits. 6. Leukocytosis. Patient has a white blood cell count of 14.1. This is most likely secondary to the patient's steroids. We will continue to monitor. DVT Prophylaxis: Lovenox Disposition: Pending improvement patient's oxygenation. VS,Fishbone, I+O VS, Fishbone, I+O Laboratory Tests 06/08/21 06:39 Vital Signs Date Time Temp Pulse Resp B/P (MAP) Pulse Ox O2 Delivery O2 Flow Rate FiO2 06/08/21 04:15 93 HVNI-Vapotherm 40.0 100 06/08/21 04:00 99.4 89 19 123/71 (88) I&O- Last 24 Hours up to 6 AM 06/08/21 05:59 Intake Total 1520 ml Output Total 1425 ml Balance [address]ER DO Jun 08, 2021 11:45
[2021-06-08] MEDS: AZITHROMYCIN INJ 500 MG, VIAL MATE ADAPTER 1 EACH in NS 250 ML IV SCH (12:09)
[2021-06-09] VITALS (11 sets, daily range): BP systolic 114–153; BP diastolic 57–105; O2SAT 90–97
[2021-06-09] MEDS: BENZONATATE 100MG CAPSULE PO SCH ×3 (05:11→20:35)
[2021-06-09 09:03] LABS: HEMATOCRIT 41.2 % (42.0-52.0); HEMOGLOBIN 14.6 g/dl (13.5-17.5); MEAN CORPUSCULAR HEMOGLOBIN 31.5 pg (27.0-33.0); MEAN CORPUSCULAR HGB CONC 35.4 g/dl (32.0-36.5); PLATELET COUNT, AUTOMATED 510 10^3/uL (150-450); RED BLOOD COUNT 4.63 10^6/uL (4.30-6.10); WHITE BLOOD COUNT 14.9 10^3/uL (4.0-10.0)
[2021-06-09 09:24] LABS: INR 1.2; PARTIAL THROMBOPLASTIN TIME 36.3 SECONDS (25.9-37.0); PROTHROMBIN TIME 15.6 SECONDS (12.7-14.5)
[2021-06-09 09:45] LABS: BLOOD UREA NITROGEN 24 MG/DL (7-18); CALCIUM LEVEL 8.6 MG/DL (8.8-10.2); CARBON DIOXIDE LEVEL 23 MEQ/L (21-32); CHLORIDE LEVEL 104 MEQ/L (98-107); CREATININE FOR GFR 0.82 MG/DL (0.70-1.30); GLOMERULAR FILTRATION RATE > 60.0 (>49); GLUCOSE, FASTING 106 MG/DL (70-100); POTASSIUM SERUM 4.2 MEQ/L (3.5-5.1); SODIUM LEVEL 134 MEQ/L (136-145)
[2021-06-09] MEDS: BARICITINIB 2MG TABLET (OLUMIANT) FOR EUA PO SCH (09:45)
[2021-06-09] MEDS: PANTOPRAZOLE 40MG TAB (PROTONIX) PO SCH (09:45)
[2021-06-09] MEDS: ASPIRIN 81MG ENTERIC TABLET PO SCH (09:45)
[2021-06-09] MEDS: dexameTHASONE 4 MG/ML 1ML VIAL (J1100 PER 1MG) IV SCH (09:45)
[2021-06-09] MEDS: ENOXAPARIN 60MG/0.6ML SYRINGE (J1650 PER 10MG) SC SCH ×2 (09:45→20:35)
[2021-06-09 09:46] LABS: ALBUMIN 2.2 GM/DL (3.2-5.2); ALT/SGPT 93 U/L (12-78); BILIRUBIN,DIRECT 0.3 MG/DL (0.0-0.2); BILIRUBIN,TOTAL 0.8 MG/DL (0.2-1.0); FERRITIN 3866 NG/ML (26-388); LDH LACTATE DEHYDROGENASE 511 U/L (87-241); MAGNESIUM LEVEL 2.5 MG/DL (1.8-2.4); NT-PRO BNP 85 PG/ML (<125); TOTAL PROTEIN 6.9 GM/DL (6.4-8.2)
[2021-06-09] MEDS: cefTRIAXone SOD 2 GM in D5W MINI-BAG PLUS 50 ML IV SCH (12:14)
--- NOTE | 2021-06-09 12:48 | IPNPDOC ---
Text Note Date of Service The patient was seen on 06/09/21. NOTE Subjective: Patient is a 60-year-old male with a PMHx of Obesity who presented to the ER on 06/03 with complaints of SOB / Dry cough / Fevers. Patient is unvaccinated and reports multiple family members who had COVID19 infections. In the emergency room, patient was found to be COVID19 positive and was admitted to the hospitalist service for further evaluation and treatment. Patient was seen and examined at the bedside. Currently patient denies any nausea, vomiting, chest pain, palpitations, abdominal pain, diarrhea, or urinary discomfort. Patient was seen on the COVID unit, on maxed out Vapotherm therapy. Patient be transitioned to the ICU for possible noninvasive ventilation / CPAP support. Objective: Vitals (See below) General: Lying in bed, appears comfortable, AAOx3 HEENT: NC, AT CVS: +S1S2 Lungs: Fair air entry b/l, no wheezing, rales Abdomen: Soft, ND, NT Extremities: - Edema, - Calf tenderness Imaging: CXR 06/03: Multifocal infiltrates (left greater than right). Assessment and plan: Acute hypoxic respiratory failure - likely 2/2 COVID 19 pneumonia - Currently patient reports that he feels relatively fine - He is however on maxed out Vapotherm therapy with the nonrebreather in place - Will continue to trend inflammatory markers - PCT has had improvement - Imaging noted above - c/w Dexamethasone / Baricitinib (Day #6); s/p Remdesivir (Completed 5 days) - c/w Ceftriaxone / Azithromycin (Day #6) - Will add incentive spirometry / acapella / Mucinex - Will transfer patient to the intensive care unit for evaluation of possible CPAP Bacteremia - likely 2/2 contaminant - Both blood cultures were drawn at the same time (06/04 at 01:01AM); Staphylococcus epidermides, staphylococcus haemolyticus - Repeat blood cultures 06/04: No growth at 72 hours s/p Transaminitis s/p Hyperkalemia Overweight - BMI of 28.8 - Complicating medical care GI prophylaxis - c/w Protonix DVT prophylaxis - c/w Lovenox Disposition: - Pending improvement patient's oxygenation. VS,Fishbone, I+O VS, Fishbone, I+O Laboratory Tests 06/09/21 08:20 Vital Signs Date Time Temp Pulse Resp B/P (MAP) Pulse Ox O2 Delivery O2 Flow Rate FiO2 06/09/21 12:00 HVNI-Vapotherm 40.0 100 06/09/21 08:00 100.1 112 20 95 06/09/21 04:00 116/59 (78) I&O- Last 24 Hours up to 6 AM 06/09/21 06:00 Intake Total 720 ml Output Total 1625 ml Balance -905 ml DOMINIC CASTILLO MD Jun 09, 2021 12:48
[2021-06-09] MEDS: AZITHROMYCIN INJ 500 MG, VIAL MATE ADAPTER 1 EACH in NS 250 ML IV SCH (12:54)
[2021-06-09] MEDS: guaiFENesin ER 600 MG TAB PO SCH ×2 (12:59→20:35)
--- NOTE | 2021-06-09 13:55 | REP ---
INDICATION: SOB / Hypoxia. COMPARISON: 06/03/2021 at 7:41 p.m. TECHNIQUE: Portable FINDINGS: The technique utilized in obtaining the radiograph has magnified the cardiac silhouette and accentuated the interstitial markings. The interstitial and airspace opacities seen throughout the left lung have significantly worsened. Right lung is stable. There is no change in the cardiomediastinal silhouette or osseous structures. IMPRESSION: Worsened opacities on the left as described above. <Electronically signed by Naresh Richardson > 06/09/21 0595
[2021-06-09 14:40] LABS: ABG BASE EXCESS -0.3 (-2.0-2.0); ABG HCO3 22.1 MEQ/L (22.0-26.0); ABG O2 SATURATION 95.4 % (95.0-99.0); ABG PARTIAL PRESSURE CO2 30.2 mmHg (35.0-45.0); ABG PARTIAL PRESSURE O2 70.7 mmHg (75.0-100.0); ABG STANDARD HCO3 24.2 MEQ/L (22.0-26.0); ABG TOTAL CO2 23.1 MEQ/L (23.0-31.0); ABG pH (ARTERIAL) 7.483 UNITS (7.350-7.450)
[2021-06-10] VITALS (10 sets, daily range): BP systolic 116–141; BP diastolic 55–81; O2SAT 90
[2021-06-10 05:30] LABS: HEMATOCRIT 39.2 % (42.0-52.0); HEMOGLOBIN 13.6 g/dl (13.5-17.5); MEAN CORPUSCULAR HEMOGLOBIN 31.5 pg (27.0-33.0); MEAN CORPUSCULAR HGB CONC 34.7 g/dl (32.0-36.5); MEAN CORPUSCULAR VOLUME 90.7 fl (80.0-96.0); PLATELET COUNT, AUTOMATED 530 10^3/uL (150-450); RED BLOOD COUNT 4.32 10^6/uL (4.30-6.10); WHITE BLOOD COUNT 12.4 10^3/uL (4.0-10.0)
[2021-06-10 05:54] LABS: BLOOD UREA NITROGEN 27 MG/DL (7-18); CALCIUM LEVEL 8.2 MG/DL (8.8-10.2); CARBON DIOXIDE LEVEL 23 MEQ/L (21-32); CHLORIDE LEVEL 106 MEQ/L (98-107); GLOMERULAR FILTRATION RATE > 60.0 (>49); GLUCOSE, FASTING 129 MG/DL (70-100); MAGNESIUM LEVEL 2.6 MG/DL (1.8-2.4); POTASSIUM SERUM 4.3 MEQ/L (3.5-5.1); SODIUM LEVEL 137 MEQ/L (136-145)
[2021-06-10] MEDS: BENZONATATE 100MG CAPSULE PO SCH ×3 (06:16→21:06)
--- NOTE | 2021-06-10 09:04 | IPNPDOC ---
Text Note Date of Service The patient was seen on 06/10/21. NOTE Subjective: Patient is a 60-year-old male with a PMHx of Obesity who presented to the ER on 06/03 with complaints of SOB / Dry cough / Fevers. Patient is unvaccinated and reports multiple family members who had COVID19 infections. In the emergency room, patient was found to be COVID19 positive and was admitted to the hospitalist service for further evaluation and treatment. Patient was seen and examined at the bedside. Patient has CPAP device in place. Denies any chest pain, palpitations, nausea, vomiting, abdominal pain, diarrhea, or urinary discomfort. Patient doesn't report any significant cough. Objective: Vitals (See below) General: Lying in bed, appears to be relatively comfortable with CPAP device in place, awake, alert HEENT: Atraumatic and normocephalic CVS: +S1S2 Lungs: Fair air entry b/l, auscultation is without any rhonchi, rales or wheezing Abdomen: Soft, nondistended, nontender Extremities: No evidence of edema, - Calf tenderness Imaging: CXR 06/03: Multifocal infiltrates (left greater than right). CXR 06/09: Worsened opacities on the left as described above. Assessment and plan: Acute hypoxic respiratory failure - likely 2/2 COVID-19 pneumonia - Again, patient reports that he is not experiencing any significant cough - Patient is currently on CPAP at 70% FiO2 - Inflammatory markers will be checked tomorrow - PCT has had improvement - Imaging noted above - c/w Dexamethasone / Baricitinib (Day #7); s/p Remdesivir (Completed 5 days) - c/w Ceftriaxone / Azithromycin (Day #7) - c/w incentive spirometry / acapella / Mucinex - Patient has been encouraged to continue home positioning even while on CPAP Bacteremia - likely 2/2 contaminant - Both blood cultures were drawn at the same time (06/04 at 01:01AM); Staphylococcus epidermides, staphylococcus haemolyticus - Repeat blood cultures 06/04: No growth at 5 days s/p Transaminitis s/p Hyperkalemia Overweight - BMI of 28.8 - Complicating medical care GI prophylaxis - c/w Protonix DVT prophylaxis - c/w Lovenox Disposition: - Pending improvement patient's oxygenation VS,Ericbone, I+O VS, Fishbone, I+O Laboratory Tests 06/10/21 05:03 Vital Signs Date Time Temp Pulse Resp B/P (MAP) Pulse Ox O2 Delivery O2 Flow Rate FiO2 06/10/21 04:00 97.9 96 22 123/65 (84) 82 NIPPV (BIPAP/CPAP) 70 06/09/21 14:00 40.0 I&O- Last 24 Hours up to 6 AM 06/10/21 06:00 Intake Total 1830 ml Output Total 1850 ml Balance -20 ml DOMINIC CASTILLO MD Jun 10, 2021 09:04
[2021-06-10] MEDS: PANTOPRAZOLE 40MG TAB (PROTONIX) PO SCH (09:12)
[2021-06-10] MEDS: BARICITINIB 2MG TABLET (OLUMIANT) FOR EUA PO SCH (09:12)
[2021-06-10] MEDS: guaiFENesin ER 600 MG TAB PO SCH ×2 (09:12→21:05)
[2021-06-10] MEDS: ASPIRIN 81MG ENTERIC TABLET PO SCH (09:12)
[2021-06-10] MEDS: dexameTHASONE 4 MG/ML 1ML VIAL (J1100 PER 1MG) IV SCH (09:13)
[2021-06-10] MEDS: ENOXAPARIN 60MG/0.6ML SYRINGE (J1650 PER 10MG) SC SCH ×2 (09:13→21:05)
[2021-06-10] MEDS: cefTRIAXone SOD 2 GM in D5W MINI-BAG PLUS 50 ML IV SCH (10:06)
[2021-06-10] MEDS: AZITHROMYCIN INJ 500 MG, VIAL MATE ADAPTER 1 EACH in NS 250 ML IV SCH (12:42)
[2021-06-11] VITALS (8 sets, daily range): BP systolic 102–133; BP diastolic 58–84
[2021-06-11 06:32] LABS: HEMATOCRIT 39.8 % (42.0-52.0); HEMOGLOBIN 13.5 g/dl (13.5-17.5); MEAN CORPUSCULAR HEMOGLOBIN 31.2 pg (27.0-33.0); MEAN CORPUSCULAR HGB CONC 33.9 g/dl (32.0-36.5); MEAN CORPUSCULAR VOLUME 91.9 fl (80.0-96.0); PLATELET COUNT, AUTOMATED 534 10^3/uL (150-450); RED BLOOD COUNT 4.33 10^6/uL (4.30-6.10); WHITE BLOOD COUNT 14.6 10^3/uL (4.0-10.0)
[2021-06-11 07:14] LABS: ALT/SGPT 76 U/L (12-78); BILIRUBIN,DIRECT 0.3 MG/DL (0.0-0.2); BILIRUBIN,TOTAL 0.8 MG/DL (0.2-1.0); BLOOD UREA NITROGEN 31 MG/DL (7-18); C REACTIVE PROTEIN QUANTITATIV 7.98 MG/DL (0.00-0.30); CALCIUM LEVEL 8.6 MG/DL (8.8-10.2); CARBON DIOXIDE LEVEL 25 MEQ/L (21-32); CHLORIDE LEVEL 107 MEQ/L (98-107); CREATININE FOR GFR 0.93 MG/DL (0.70-1.30); FERRITIN 3973 NG/ML (26-388); GLOMERULAR FILTRATION RATE > 60.0 (>49); GLUCOSE, FASTING 108 MG/DL (70-100); LDH LACTATE DEHYDROGENASE 514 U/L (87-241); MAGNESIUM LEVEL 2.5 MG/DL (1.8-2.4); POTASSIUM SERUM 4.9 MEQ/L (3.5-5.1); SODIUM LEVEL 138 MEQ/L (136-145); TOTAL PROTEIN 6.9 GM/DL (6.4-8.2)
[2021-06-11] MEDS: BENZONATATE 100MG CAPSULE PO SCH ×3 (07:30→21:11)
[2021-06-11] MEDS: BARICITINIB 2MG TABLET (OLUMIANT) FOR EUA PO SCH (08:37)
[2021-06-11] MEDS: guaiFENesin ER 600 MG TAB PO SCH ×2 (08:37→21:11)
[2021-06-11] MEDS: dexameTHASONE 4 MG/ML 1ML VIAL (J1100 PER 1MG) IV SCH (08:37)
[2021-06-11] MEDS: PANTOPRAZOLE 40MG TAB (PROTONIX) PO SCH (08:37)
[2021-06-11] MEDS: ASPIRIN 81MG ENTERIC TABLET PO SCH (08:37)
[2021-06-11] MEDS: ENOXAPARIN 60MG/0.6ML SYRINGE (J1650 PER 10MG) SC SCH ×2 (08:38→21:11)
--- NOTE | 2021-06-11 11:30 | IPNPDOC ---
Text Note Date of Service The patient was seen on 06/11/21. NOTE Subjective: Patient is a 60-year-old male with a PMHx of Obesity who presented to the ER on 06/03 with complaints of SOB / Dry cough / Fevers. Patient is unvaccinated and reports multiple family members who had COVID19 infections. In the emergency room, patient was found to be COVID19 positive and was admitted to the hospitalist service for further evaluation and treatment. Patient was seen and examined at the bedside. Patient was seen with Vapotherm in place. Patient does report some shortness of breath and mild expectoration of sputum. She denies any chest pain, palpitations, nausea, vomiting, abdominal pain, diarrhea, or urinary discomfort. Objective: Vitals (See below) General: Patient is lying in bed, appears to be comfortable without any acute distress. he is awake, alert and oriented 3 HEENT: AT, NC CVS: +S1S2 Lungs: There appears to be fair air entry bilaterally without any evidence of crackles, wheezing, rhonchi Abdomen: Abdomen remains soft without any significant distention or tenderness Extremities: LE are without edema Imaging: CXR 06/03: Multifocal infiltrates (left greater than right). CXR 06/09: Worsened opacities on the left as described above. Assessment and plan: Acute hypoxic respiratory failure - likely 2/2 COVID-19 pneumonia - This morning patient has reported some shortness of breath and some sputum production - Patient is currently on Vapotherm and CPAP at night - Inflammatory markers have shown improvement - PCT pending for this morning - Imaging noted above - c/w Dexamethasone / Baricitinib (Day #8); s/p Remdesivir (Completed 5 days) - c/w Ceftriaxone / Azithromycin (Day #8) - c/w incentive spirometry / acapella / Mucinex - Patient reports that he has been continuing to sleep on his stomach throughout the night s/p Bacteremia - likely 2/2 contaminant - Both blood cultures were drawn at the same time (06/04 at 01:01AM); Staphylococcus epidermides, staphylococcus haemolyticus - Repeat blood cultures 06/04: No growth at 5 days s/p Transaminitis s/p Hyperkalemia Overweight - BMI of 28.8 - Complicating medical care GI prophylaxis - c/w Protonix DVT prophylaxis - c/w Lovenox; weight-based prophylactic dosing Disposition: - Pending improvement patient's oxygenation VS,Fishbone, I+O VS, Fishbone, I+O Laboratory Tests 06/11/21 06:13 Vital Signs Date Time Temp Pulse Resp B/P (MAP) Pulse Ox O2 Delivery O2 Flow Rate FiO2 06/11/21 11:15 Non-Rebreather 15.0 06/11/21 11:15 100 06/11/21 09:00 103 87 06/11/21 08:00 99.0 22 114/72 (86) I&O- Last 24 Hours up to 6 AM 06/11/21 06:00 Intake Total 1545 ml Output Total 1530 ml Balance 15 ml DOMINIC CASTILLO MD Jun 11, 2021 11:30
[2021-06-11] MEDS: cefTRIAXone SOD 2 GM in D5W MINI-BAG PLUS 50 ML IV SCH (11:55)
--- NOTE | 2021-06-11 12:23 | REP ---
INDICATION: SOB. COMPARISON: 06/09/2021. TECHNIQUE: Single portable AP view of the chest was performed. FINDINGS: Bilateral infiltrates are stable. The heart and mediastinum appear unchanged. IMPRESSION: Stable bilateral infiltrates, left greater than right. <Electronically signed by Tristin Castro > 06/11/21 1714
[2021-06-11] MEDS: AZITHROMYCIN INJ 500 MG, VIAL MATE ADAPTER 1 EACH in NS 250 ML IV SCH (12:38)
[2021-06-12] VITALS: BP 119/69
[2021-06-12 04:58] LABS: HEMATOCRIT 43.6 % (42.0-52.0); HEMOGLOBIN 14.7 g/dl (13.5-17.5); MEAN CORPUSCULAR HEMOGLOBIN 31.1 pg (27.0-33.0); MEAN CORPUSCULAR HGB CONC 33.7 g/dl (32.0-36.5); MEAN CORPUSCULAR VOLUME 92.4 fl (80.0-96.0); RED BLOOD COUNT 4.72 10^6/uL (4.30-6.10)
[2021-06-12 05:04] LABS: PLATELET COUNT, AUTOMATED 682 10^3/uL (150-450)
[2021-06-12 06:00] VITALS: BP 124/70
[2021-06-12 06:35] LABS: BLOOD UREA NITROGEN 24 MG/DL (7-18); CALCIUM LEVEL 8.3 MG/DL (8.8-10.2); CARBON DIOXIDE LEVEL 23 mmol/L (20-29); CHLORIDE LEVEL 104 MEQ/L (98-107); CREATININE FOR GFR 0.96 MG/DL (0.70-1.30); GLOMERULAR FILTRATION RATE > 60.0 (>49); GLUCOSE, FASTING 96 MG/DL (70-100); POTASSIUM SERUM 4.8 MEQ/L (3.5-5.1); SODIUM LEVEL 137 MEQ/L (136-145)
[2021-06-12 06:36] LABS: ALBUMIN 2.3 GM/DL (3.2-5.2); ALT/SGPT 87 IU/L (0-32); BILIRUBIN,DIRECT 0.3 MG/DL (0.0-0.2); BILIRUBIN,TOTAL 0.8 MG/DL (0.2-1.0); FERRITIN 5465 NG/ML (26-388); LDH LACTATE DEHYDROGENASE 655 U/L (87-241); MAGNESIUM LEVEL 2.2 MG/DL (1.8-2.4); TOTAL PROTEIN 7.1 GM/DL (6.4-8.2)
[2021-06-12] MEDS: BENZONATATE 100MG CAPSULE PO SCH ×3 (06:42→22:27)
[2021-06-12] MEDS: PIPERACILLIN/TAZOBACTAM SOD 3.375 GM in D5W MINI-BAG PLUS 50 ML IV SCH ×3 (07:50→20:00)
[2021-06-12 07:56] VITALS: BP 114/58
[2021-06-12] MEDS: dexameTHASONE 4 MG/ML 1ML VIAL (J1100 PER 1MG) IV SCH (09:14)
[2021-06-12] MEDS: PANTOPRAZOLE 40MG TAB (PROTONIX) PO SCH (09:16)
[2021-06-12] MEDS: guaiFENesin ER 600 MG TAB PO SCH ×2 (09:16→21:00)
[2021-06-12] MEDS: BARICITINIB 2MG TABLET (OLUMIANT) FOR EUA PO SCH (09:16)
[2021-06-12] MEDS: VANCOMYCIN HCL 1,000 MG, VIAL MATE ADAPTER 1 EACH in NS 250 ML IV SCH ×2 (09:16→10:15)
[2021-06-12] MEDS: ASPIRIN 81MG ENTERIC TABLET PO SCH (09:17)
[2021-06-12] MEDS: ENOXAPARIN 60MG/0.6ML SYRINGE (J1650 PER 10MG) SC SCH ×2 (09:17→21:00)
[2021-06-12 12:03] VITALS: BP 115/61
--- NOTE | 2021-06-12 15:21 | IPNPDOC ---
Text Note Date of Service The patient was seen on 06/12/21. NOTE Subjective: Patient is a 60-year-old male with a PMHx of Obesity who presented to the ER on 06/03 with complaints of SOB / Dry cough / Fevers. Patient is unvaccinated and reports multiple family members who had COVID19 infections. In the emergency room, patient was found to be COVID19 positive and was admitted to the hospitalist service for further evaluation and treatment. Patient was seen and examined at the bedside. Patient is laying in bed with Vapotherm in place, appears to be comfortable. He denies any nausea, vomiting, abdominal pain, diarrhea, or discomfort with urination. Patient reports that his breathing is doing relatively fine. He does report increased expectoration of sputum. Objective: Vitals (See below) General: Patient is laying on his side while in bed, does not appear to be in any acute distress. He is comfortable, awake, alert and oriented to person, time and place HEENT: Atraumatic, normocephalic CVS: +S1S2 Lungs: There appears to be fair air entry bilaterally without evidence of crackles, rhonchi or wheezing Abdomen: His abdomen remains soft, nondistended, without any appreciated tende rness Extremities: No edema is appreciated of his lower extremities Imaging: CXR 06/03: Multifocal infiltrates (left greater than right). CXR 06/09: Worsened opacities on the left as described above. CXR 06/11: Stable bilateral infiltrates, left greater than right. Assessment and plan: Acute hypoxic respiratory failure - likely 2/2 COVID-19 pneumonia, possibly 2/2 superimposed bacterial infection - Again this morning patient has reported that he feels relatively fine, howev er, he did note increased mucus production with cough this morning - Patient is currently on Vapotherm and CPAP at night - Inflammatory markers have trended up this morning - PCT pending increased - Imaging noted above - c/w Dexamethasone / Baricitinib (Day #9); s/p Remdesivir (Completed 5 days) - Will escalate antibiotic coverage to Vancomycin / Zosyn (Day #1); Will DC Ceftriaxone / Azithromycin (Completed 8 days) - c/w incentive spirometry / acapella / Mucinex - Patient reports that he has been continuing to sleep on his stomach throughout the night Leukocytosis - ROS negative; other than increased sputum production with cough - Will check blood cultures / UA with reflex culture / MRSA screen - Repeat CXR imaging noted above; relatively unchanged - Will increase antibiotic coverage (See above) s/p Bacteremia - likely 2/2 contaminant - Both blood cultures were drawn at the same time (06/04 at 01:01AM); Staphylococcus epidermides, staphylococcus haemolyticus - Repeat blood cultures 06/04: No growth at 5 days s/p Transaminitis s/p Hyperkalemia Overweight - BMI of 28.8 - Complicating medical care GI prophylaxis - c/w Protonix DVT prophylaxis - c/w Lovenox weight-based prophylactic dosing Disposition: - Pending improvement patient's oxygenation VS,Fishbone, I+O VS, Fishbone, I+O Laboratory Tests 06/12/21 04:16 Vital Signs Date Time Temp Pulse Resp B/P (MAP) Pulse Ox O2 Delivery O2 Flow Rate FiO2 06/12/21 12:03 99 115/61 (79) 89 NIPPV (BIPAP/CPAP) 8.0 90 06/12/21 06:00 97.3 20 I&O- Last 24 Hours up to 6 AM 06/12/21 05:59 Intake Total 1800 ml Output Total 2000 ml Balance -200 ml DOMINIC CASTILLO MD Jun 12, 2021 15:21
[2021-06-12] MEDS: NS 1,000 ML IV SCH (15:47)
[2021-06-12 17:20] VITALS: BP 96/67
[2021-06-12] MEDS ORDERED: NS 1,000 ML IV ONE (18:15)
[2021-06-12 20:00] VITALS: BP 94/62
[2021-06-13] VITALS (13 sets, daily range): BP systolic 98–140; BP diastolic 54–72
[2021-06-13] MEDS: PIPERACILLIN/TAZOBACTAM SOD 3.375 GM in D5W MINI-BAG PLUS 50 ML IV SCH ×4 (02:51→20:00)
[2021-06-13 05:13] LABS: HEMATOCRIT 38.1 % (42.0-52.0); HEMOGLOBIN 13.1 g/dl (13.5-17.5); MEAN CORPUSCULAR HEMOGLOBIN 31.6 pg (27.0-33.0); MEAN CORPUSCULAR HGB CONC 34.4 g/dl (32.0-36.5); MEAN CORPUSCULAR VOLUME 91.8 fl (80.0-96.0); PLATELET COUNT, AUTOMATED 568 10^3/uL (150-450); RED BLOOD COUNT 4.15 10^6/uL (4.30-6.10); WHITE BLOOD COUNT 17.8 10^3/uL (4.0-10.0)
[2021-06-13] MEDS: NS 1,000 ML IV SCH ×2 (05:29→17:47)
[2021-06-13 05:58] LABS: ALBUMIN 1.9 GM/DL (3.2-5.2); ALT/SGPT 66 U/L (12-78); BILIRUBIN,DIRECT 0.4 MG/DL (0.0-0.2); BILIRUBIN,TOTAL 0.9 MG/DL (0.2-1.0); BLOOD UREA NITROGEN 20 MG/DL (7-18); CALCIUM LEVEL 7.8 MG/DL (8.8-10.2); CARBON DIOXIDE LEVEL 25 MEQ/L (21-32); CHLORIDE LEVEL 107 MEQ/L (98-107); CREATININE FOR GFR 0.78 MG/DL (0.70-1.30); FERRITIN 4610 NG/ML (26-388); GLOMERULAR FILTRATION RATE > 60.0 (>49); GLUCOSE, FASTING 101 MG/DL (70-100); LDH LACTATE DEHYDROGENASE 719 U/L (87-241); MAGNESIUM LEVEL 2.1 MG/DL (1.8-2.4); POTASSIUM SERUM 4.7 MEQ/L (3.5-5.1); SODIUM LEVEL 137 MEQ/L (136-145); TOTAL PROTEIN 6.1 GM/DL (6.4-8.2)
[2021-06-13] MEDS: BENZONATATE 100MG CAPSULE PO SCH (06:00)
[2021-06-13] MEDS ORDERED: ONDANSETRON 4MG/2ML VIAL As Ordered ONE (06:17)
[2021-06-13] MEDS: LORazepam 2 MG/ML VIAL IV PRN ×2 (06:28→21:00)
[2021-06-13 06:55] LABS: ABG BASE EXCESS -3.4 (-2.0-2.0); ABG HCO3 21.5 MEQ/L (22.0-26.0); ABG PARTIAL PRESSURE CO2 38.6 mmHg (35.0-45.0); ABG PARTIAL PRESSURE O2 78.9 mmHg (75.0-100.0); ABG STANDARD HCO3 21.6 MEQ/L (22.0-26.0); ABG TOTAL CO2 22.7 MEQ/L (23.0-31.0); ABG pH (ARTERIAL) 7.364 UNITS (7.350-7.450)
--- NOTE | 2021-06-13 08:24 | REP ---
INDICATION: hxpoxemia. COMPARISON: Comparison chest x-ray June 11, 2021. TECHNIQUE: Semi-erect AP portable chest. Single-view. FINDINGS: Patient is rotated somewhat to the left. There is fairly extensive infiltrate bilaterally left more advanced than right. Patchy opacities are more prominent in the right chest and they were on June 11, 2021. Heart size is unchanged. Is not well seen due to consolidation in the lung. Right pleural angle is sharp. EKG monitoring electrodes tubing are seen. And oxygen delivery the left pleural angle IMPRESSION: Fairly extensive bilateral infiltrates consistent with pneumonia. Radiographically more prominent than on June 11, 2021. <Electronically signed by Jude Drummond > 06/13/21 [id number]
[2021-06-13] MEDS: BARICITINIB 2MG TABLET (OLUMIANT) FOR EUA PO SCH (08:54)
[2021-06-13] MEDS: guaiFENesin ER 600 MG TAB PO SCH ×2 (08:54→20:06)
[2021-06-13] MEDS: ASPIRIN 81MG ENTERIC TABLET PO SCH (08:54)
[2021-06-13] MEDS: PANTOPRAZOLE 40MG VIAL (C9113 PER 1) IV SCH (08:55)
[2021-06-13] MEDS: dexameTHASONE 4 MG/ML 1ML VIAL (J1100 PER 1MG) IV SCH (08:55)
[2021-06-13] MEDS: ENOXAPARIN 60MG/0.6ML SYRINGE (J1650 PER 10MG) SC SCH ×2 (08:56→20:02)
--- NOTE | 2021-06-13 09:46 | CR.PDOC ---
General Date of Consultation: Jun 13, 2021 Consultation REASON FOR CRITICAL CARE CONSULTATION/DAYO COMPLAINT: Respiratory failure HISTORY OF PRESENT ILLNESS: 60-year-old male with no significant past medical history, who presented to the hospital initially with the complaint of shortness of breath, dry cough and fever for about 10 days. He endorses that several of his relatives had Covid infection. Neither he or his for members receive Covid vaccines. On presentation to the hospital he was in acute hypoxemic respiratory failure req uiring BiPAP. He was admitted to the ICU where his oxygen requirements allowed alternating Vapotherm and CPAP. The patient was tolerating Vapotherm so that he can eat and drink. Overnight he had an episode of desaturation on the Vapotherm to 60% and he was having increased work of breathing. He was subsequently placed on CPAP 12 cmH2O on FiO2 of 100%. Patient is seen and examined this morning. He is complaining of shortness of breath but he feels better than that acute episode of desaturation that occurred overnight. He is speaking in full sentences. PAST MEDICAL/SURGICAL HISTORY: Obesity. Denies any surgical history. FAMILY HISTORY: Parents are alive and well. No significant cardiopulmonary disease in family. SOCIAL HISTORY: Former smoker, quit approximately 20 years ago. He is retired and worked in [employer]. He lives with his fiance. ALLERGIES: Please see below. HOME MEDICATIONS: Please see below. REVIEW OF SYSTEMS: CONSTITUTIONAL: Denies fever, chills, night sweats, weight loss EYES: No blurring of vision or redness. ENT: No sore throat. No epistaxis. No tinnitus. CARDIOVASCULAR: No chest pain. No palpitations. RESPIRATORY: + dyspnea GASTROINTESTINAL: No nausea, vomiting, or diarrhea. GENITOURINARY: No frequency, urgency, nocturia. No hematuria or dysuria. MUSCULOSKELETAL: No arthralgias or myalgias. INTEGUMENTARY: No rash or swelling NEUROLOGIC: No headache. No numbness or tingling of the extremities. No weakness. PSYCHIATRIC: No confusion or mood changes. ENDOCRINE: No fatigue, no goiter. HEMATOLOGICAL: No bleeding. No petechiae. No bruising. PHYSICAL EXAMINATION: VITAL SIGNS: Please see below. GENERAL APPEARANCE: Alert and awake. Mild respiratory distress on CPAP HEENT: no thyromegaly, trachea midline, PERRLA. normal mucous membranes RESPIRATORY: good air entry. Crackles at the bases bilateral CARDIOVASCULAR: +s1 s2, no murmurs. ABDOMEN: nontender, not distended, +BS EXTREMITIES: no edema or erythema. palpable distal pulses SKIN: no rash, no purpura NEUROLOGICAL: no sensory or motor deficits, orientedx3. LABS/IMAGING: Chest x-ray from today bilateral opacities with worsening infiltrate on the left IMPRESSION: The most critical problems requiring my immediate presence at bedside are: 1. Acute hypoxic respiratory failure secondary to Covid pneumonia with suspected bacterial coinfection given rising WBC count and worsening left lung infiltrate. Procal 0.41 [from 0.3] 2. Elevated inflammatory markers consistent with cytokine release phase PLAN: ORDER MANAGEMENT SPECIALIST: Avoid ORDER MANAGEMENT SPECIALIST depressants. PULM: HOB 30 degrees. Maintain Sp02 88 to 96%. Continue with CPAP 12 cm of water at 100% FiO2 and titrate FiO2 down as tolerated. CARDIO: Maintain MAPs 60-65. Avoid volume overload and keep I=O. GI: GI ppx. Keep n.p.o. for now just in case patient decompensates and requires mechanical ventilation RENAL: monitor lytes. ID: Baricitinib 4 mg p.o. daily x14 days or until hospital discharge which ever is first. Decadron 6 mg IV daily x10 days or until hospital discharge whichever is shorter. Follow-up sputum culture. MRSA nares is negative. Agree with Zosyn for now for empiric coverage of secondary bacterial infection. ENDO: Monitor FS per routine. Goal range 140-180. HEME: Check lower extremity venous duplex. Continue with Lovenox 50 mg every 12 LINES/CATHETERS: No central. CODE STATUS: Full code. DISPOSITION: Patient to remain in ICU. A total of 65 minutes of critical care time was spent on patient care, not including procedures Vital Signs/I&O Vital Signs Date Time Temp Pulse Resp B/P (MAP) Pulse Ox O2 Delivery O2 Flow Rate FiO2 06/13/21 08:26 100 06/13/21 07:05 125 93 06/13/21 06:56 134/68 (90) 06/13/21 04:00 12.0 06/13/21 04:00 97.3 30 NIPPV (BIPAP/CPAP) I&O- Last 24 Hours up to 6 AM 06/13/21 06:00 Intake Total 1710 ml Output Total 1120 ml Balance 590 ml Laboratory Data Labs 24H Laboratory Tests 2 06/12/21 16:03: Urine Color YELLOW, Urine Appearance CLEAR, Urine pH 6.0, Urine Specific [place] 1.032, Urine Protein 1+H, Urine Glucose (UA) NEGATIVE, Urine Ketones NEGATIVE, Urine Blood NEGATIVE, Urine Nitrite NEGATIVE, Urine Bilirubin NEGATIVE, Urine Urobilinogen 4.0H, Urine Leukocyte Esterase NEGATIVE, Urine WBC (Auto) 1, Urine RBC (Auto) 1, Urine Hyaline Casts (Auto) 0, Urine Bacteria (Auto) NEGATIVE, Urine Squamous Epithelial Cells 0, Urine Mucus (Auto) SMALL, Urine Sperm (Auto) 06/13/21 04:53: Nucleated Red Blood Cells % (auto) 0.0, Anion Gap 5L, Glomerular Filtration Rate > 60.0, Calcium Level 7.8L, Magnesium Level 2.1, Ferritin 4610H, Total Bilirubin 0.9, Direct Bilirubin 0.4H, Aspartate Amino Transf (AST/SGOT) 37, Alanine Aminotransferase (ALT/SGPT) 66, Alkaline Phosphatase 105, Lactate Dehydrogenase 719H, C-Reactive Protein, Quantitative 16.40H, Total Protein 6.1L, Albumin 1.9L, Albumin/Globulin Ratio 0.5, Procalcitonin 0.41 06/13/21 06:45: Blood Gas Bicarbonate Standard 21.6L, Arterial Blood pH 7.364, Arterial Blood Partial Pressure CO2 38.6, Arterial Blood Partial Pressure O2 78.9, Arterial Blood Total CO2 22.7L, Arterial Blood HCO3 21.5L, Arterial Blood Base Excess - 3.4L, Arterial Blood Oxygen Saturation 95.0 CBC/BMP Laboratory Tests 06/13/21 04:53 Microbiology Microbiology 06/12/21 Gram Stain - Final, Resulted 06/12/21 Sputum Culture, Resulted Pending 06/12/21 Blood Culture - Preliminary, Resulted No growth after 24 hours . All specim... 06/12/21 Blood Culture - Preliminary, Resulted No growth after 24 hours . All specim... 06/04/21 Blood Culture - Final, Complete NO GROWTH AFTER 5 DAYS 06/04/21 Blood Culture - Final, Complete NO GROWTH AFTER 5 DAYS 06/04/21 Blood Culture - Final, Complete Staphylococcus Epidermidis 06/04/21 Blood Culture - Final, Complete Staphylococcus Haemolyticus Allergies Coded Allergies: No Known Allergies (Unverified , 06/03/21) Home Medications Scheduled Ascorbic Acid (Vitamin C) 500 Mg Tablet, 500 MG PO DAILY, (Reported) Cholecalciferol (Vitamin D3) (Vitamin D3) 1,000 Unit Tablet, 1,000 UNITS PO DAILY, (Reported) Famotidine (Famotidine) 20 Mg Tablet, 40 MG PO QHS, (Reported) Multivit-Min/Ascorbic/Herb 124 (Airborne Chewable Tablet) 250 Mg-87.5 Mg Tab.chew, 1 CHEW PO DAILY, (Reported) Zinc (Zinc) 50 Mg Tablet, 50 MG PO DAILY, (Reported) Scheduled PRN Naproxen Sodium (Aleve) 220 Mg Tablet, 220 MG PO BID PRN for FEVER, (Reported) ROSALES CANALES MD Jun 13, 2021 09:46
--- NOTE | 2021-06-13 10:52 | IPNPDOC ---
Text Note Date of Service The patient was seen on 06/13/21. NOTE Subjective: Patient is a 60-year-old male with a PMHx of Obesity who presented to the ER on 06/03 with complaints of SOB / Dry cough / Fevers. Patient is unvaccinated and reports multiple family members who had COVID19 infections. In the emergency room, patient was found to be COVID19 positive and was admitted to the hospitalist service for further evaluation and treatment. Overnight patient had an episode of desaturation cause him to become signi ficantly tachycardic and tachypneic. Patient was transitioned back to CPAP therapy. Entry Level Electrical Engineer was consulted overnight. Patient was seen and examined at the bedside. This morning patient was seen with CPAP mask on. Patient did report some shortness of breath, he notes that he has been coughing more. Patient denies any chest pain or palpitations. Has not experience any nausea, vomiting, abdominal discomfort. Denies any diarrhea, or burning with urination. Objective: Vitals (See below) General: Patient is laying in bed, appears to be short of breath but can speak in full sentences. He is awake, alert and oriented 3 HEENT: AT, NC CVS: +S1S2 Lungs: Air flows appreciated bilaterally without any evidence of rhonchi, crackles or wheezing Abdomen: Soft without any significant distention or tenderness Extremities: Lower extremities are without any edema Imaging: CXR 06/03: Multifocal infiltrates (left greater than right). CXR 06/09: Worsened opacities on the left as described above. CXR 06/11: Stable bilateral infiltrates, left greater than right. CXR 06/13: Fairly extensive bilateral infiltrates consistent with pneumonia. Radiographically more prominent than on June 11, 2021. Assessment and plan: Acute hypoxic respiratory failure - likely 2/2 COVID-19 pneumonia, possibly 2/2 superimposed bacterial infection - Overnight, she had an episode where he became profoundly hypoxic - Currently patient has CPAP in place and appears to be saturating well on 100% FiO2 - Inflammatory markers continues to have an upward trend - PCT pending increased - MRSA screen 06/12: Negative - Imaging noted above - c/w Dexamethasone / Baricitinib (Day #10); s/p Remdesivir (Completed 5 days) - c/w Zosyn (Day #2); s/p Vancomycin x 1 dose (06/12); s/p Ceftriaxone / Azithromycin (Completed 8 days) - c/w incentive spirometry / acapella / Mucinex - Pulmonology on consultation; appreciate their input Leukocytosis - possibly 2/2 superimposed bacterial infection - ROS negative; other than increased sputum production with cough - Will check blood cultures / UA with reflex culture / MRSA screen - Sputum cultures 06/12: Pending - Imaging noted above - Will provide gentle IV fluid hydration - Will increase antibiotic coverage (See above) s/p Bacteremia - likely 2/2 contaminant - Both blood cultures were drawn at the same time (06/04 at 01:01AM); Staphylococcus epidermides, staphylococcus haemolyticus - Repeat blood cultures 06/04: No growth at 5 days s/p Transaminitis s/p Hyperkalemia Overweight - BMI of 28.8 - Complicating medical care GI prophylaxis - c/w Protonix; transitioned to IV DVT prophylaxis - c/w Lovenox weight-based prophylactic dosing Disposition: - Pending improvement patient's oxygenation VS,Fishbone, I+O VS, Fishbone, I+O Laboratory Tests 06/13/21 04:53 Vital Signs Date Time Temp Pulse Resp B/P (MAP) Pulse Ox O2 Delivery O2 Flow Rate FiO2 06/13/21 09:00 101 91 NIPPV (BIPAP/CPAP) 100 06/13/21 08:00 12.0 06/13/21 08:00 97.7 26 119/72 (88) I&O- Last 24 Hours up to 6 AM 06/13/21 05:59 Intake Total 1710 ml Output Total 1120 ml Balance 590 ml DOMINIC CASTILLO MD Jun 13, 2021 10:52
--- NOTE | 2021-06-13 20:00 | ECGEPIP ---
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
[2021-06-14] VITALS (10 sets, daily range): BP systolic 127–170; BP diastolic 61–90
[2021-06-14] MEDS: PIPERACILLIN/TAZOBACTAM SOD 3.375 GM in D5W MINI-BAG PLUS 50 ML IV SCH ×4 (02:08→20:31)
[2021-06-14] MEDS: LORazepam 2 MG/ML VIAL IV PRN ×4 (04:25→21:19)
--- NOTE | 2021-06-14 08:35 | IPNPDOC ---
Text Note Date of Service The patient was seen on 06/14/21. NOTE Subjective: Patient is a 60-year-old male with a PMHx of Obesity who presented to the ER on 06/03 with complaints of SOB / Dry cough / Fevers. Patient is unvaccinated and reports multiple family members who had COVID19 infections. In the emergency room, patient was found to be COVID19 positive and was admitted to the hospitalist service for further evaluation and treatment. Patient was seen and examined at the bedside. Patient notes he has had an uneventful night. He denies any chest pain or palpitations. Reports his cough is doing better. Still is short of breath with CPAP in place, however his FIO2 requirement has improved. He denies any N/V, abdominal pain, C/D or urinary discomfort. Objective: Vitals (See below) General: Laying in bed, on his side, appears comfortable, awake / alert, oriented x3 HEENT: atraumatic and normocephalic CVS: +S1S2 Lungs: Air flow is difficult to appreciate this morning, but no auscultated rhonchi / rales / wheezing noted Abdomen: Remains soft, without any appreciated tenderness / distension Extremities: LE are without edema Imaging: CXR 06/03: Multifocal infiltrates (left greater than right). CXR 06/09: Worsened opacities on the left as described above. CXR 06/11: Stable bilateral infiltrates, left greater than right. CXR 06/13: Fairly extensive bilateral infiltrates consistent with pneumonia. Radiographically more prominent than on June 11, 2021. Assessment and plan: Acute hypoxic respiratory failure - likely 2/2 COVID-19 pneumonia, possibly 2/2 superimposed bacterial infection - Appears comfortable laying on his side in bed, reports cough with reduction of sputum production - CPAP in place; FIO2 requirement has improved - Inflammatory markers / PCT pending this morning - MRSA screen 06/12: Negative - Imaging noted above - c/w Baricitinib (Day #11); s/p Remdesivir (Completed 5 days); s/p Dexamethasone (Completed 10 days) - c/w Zosyn (Day #3); s/p Vancomycin x 1 dose (/3); s/p Ceftriaxone / Azithromycin (Completed 8 days) - c/w incentive spirometry / acapella / Mucinex - Pulmonology on consultation; appreciate their input Leukocytosis - possibly 2/2 superimposed bacterial infection - Blood cultures 06/12: No growth at 48 hours - UA 06/12 negative - Sputum cultures 06/12: (Gram stain: few gram positive cocci in chains, few gram negative rods, few yeast like organisms) - Imaging noted above - c/w Gentle IV fluid hydration - c/w antibiotic coverage as stated above s/p Bacteremia - likely 2/2 contaminant - Both blood cultures were drawn at the same time (06/04 at 01:01AM); Staphylococcus epidermides, staphylococcus haemolyticus - Repeat blood cultures 06/04: No growth at 5 days s/p Transaminitis s/p Hyperkalemia Overweight - BMI of 28.8 - Complicating medical care GI prophylaxis - c/w Protonix IV DVT prophylaxis - c/w Lovenox weight-based prophylactic dosing Disposition: - Pending improvement patient's oxygenation VS,Fishbone, I+O VS, Fishbone, I+O Vital Signs Date Time Temp Pulse Resp B/P (MAP) Pulse Ox O2 Delivery O2 Flow Rate FiO2 06/14/21 08:00 97.5 126 146/69 (94) 92 NIPPV (BIPAP/CPAP) 85 06/14/21 04:00 35 06/14/21 04:00 12.0 I&O- Last 24 Hours up to 6 AM 06/14/21 05:59 Intake Total 1820 ml Output Total 1375 ml Balance 445 ml DOMINIC CASTILLO MD Jun 14, 2021 08:35
[2021-06-14] MEDS: NS 1,000 ML IV SCH ×2 (08:40→18:00)
[2021-06-14] MEDS: PANTOPRAZOLE 40MG VIAL (C9113 PER 1) IV SCH (08:40)
[2021-06-14] MEDS: ASPIRIN 81MG ENTERIC TABLET PO SCH (08:41)
[2021-06-14] MEDS: ENOXAPARIN 60MG/0.6ML SYRINGE (J1650 PER 10MG) SC SCH ×2 (08:41→20:31)
[2021-06-14] MEDS: guaiFENesin ER 600 MG TAB PO SCH ×2 (08:41→20:31)
[2021-06-14] MEDS: BARICITINIB 2MG TABLET (OLUMIANT) FOR EUA PO SCH (08:41)
[2021-06-14 09:19] LABS: BASO % 0.1 % (0.0-1.0); EOS # 0.1 10^3/uL (0.0-0.5); EOS % 0.5 % (0.0-3.0); HEMATOCRIT 35.8 % (42.0-52.0); HEMOGLOBIN 12.5 g/dl (13.5-17.5); LYMPH # 0.4 10^3/uL (1.5-5.0); LYMPH % 2.7 % (24.0-44.0); MEAN CORPUSCULAR HEMOGLOBIN 31.6 pg (27.0-33.0); MEAN CORPUSCULAR HGB CONC 34.9 g/dl (32.0-36.5); MEAN CORPUSCULAR VOLUME 90.6 fl (80.0-96.0); MONO # 0.4 10^3/uL (0.0-0.8); MONO % 2.4 % (2.0-8.0); NEUTROPHILS # 14.5 10^3/uL (1.5-8.5); NEUTROPHILS % 93.7 % (36.0-66.0); PLATELET COUNT, AUTOMATED 401 10^3/uL (150-450); RED BLOOD COUNT 3.95 10^6/uL (4.30-6.10); WHITE BLOOD COUNT 15.5 10^3/uL (4.0-10.0)
[2021-06-14 10:12] LABS: ALBUMIN 1.6 GM/DL (3.2-5.2); ALT/SGPT 59 U/L (12-78); BILIRUBIN,TOTAL 1.2 MG/DL (0.2-1.0); BLOOD UREA NITROGEN 20 MG/DL (7-18); CARBON DIOXIDE LEVEL 26 MEQ/L (21-32); CHLORIDE LEVEL 105 MEQ/L (98-107); CREATININE FOR GFR 0.76 MG/DL (0.70-1.30); FERRITIN 4598 NG/ML (26-388); GLOMERULAR FILTRATION RATE > 60.0 (>49); GLUCOSE, FASTING 84 MG/DL (70-100); LDH LACTATE DEHYDROGENASE 801 U/L (87-241); MAGNESIUM LEVEL 2.2 MG/DL (1.8-2.4); POTASSIUM SERUM 4.6 MEQ/L (3.5-5.1); SODIUM LEVEL 137 MEQ/L (136-145); TOTAL PROTEIN 5.7 GM/DL (6.4-8.2)
[2021-06-15] VITALS (11 sets, daily range): BP systolic 109–166; BP diastolic 58–84
[2021-06-15] MEDS: PIPERACILLIN/TAZOBACTAM SOD 3.375 GM in D5W MINI-BAG PLUS 50 ML IV SCH ×4 (02:52→20:00)
[2021-06-15] MEDS ORDERED: ACETAMINOPHEN *IV* 1,000 MG in IV 1 EA IV ONE (04:05)
[2021-06-15 04:45] LABS: BASO % 0.1 % (0.0-1.0); EOS # 0.1 10^3/uL (0.0-0.5); EOS % 0.4 % (0.0-3.0); HEMATOCRIT 34.5 % (42.0-52.0); HEMOGLOBIN 11.8 g/dl (13.5-17.5); LYMPH # 0.6 10^3/uL (1.5-5.0); LYMPH % 4.8 % (24.0-44.0); MEAN CORPUSCULAR HEMOGLOBIN 31.3 pg (27.0-33.0); MEAN CORPUSCULAR HGB CONC 34.2 g/dl (32.0-36.5); MEAN CORPUSCULAR VOLUME 91.5 fl (80.0-96.0); MONO # 0.3 10^3/uL (0.0-0.8); MONO % 2.6 % (2.0-8.0); NEUTROPHILS # 10.7 10^3/uL (1.5-8.5); NEUTROPHILS % 91.2 % (36.0-66.0); PLATELET COUNT, AUTOMATED 384 10^3/uL (150-450); RED BLOOD COUNT 3.77 10^6/uL (4.30-6.10); WHITE BLOOD COUNT 11.7 10^3/uL (4.0-10.0)
[2021-06-15 05:25] LABS: ALBUMIN 1.4 GM/DL (3.2-5.2); ALT/SGPT 63 U/L (12-78); BILIRUBIN,TOTAL 1.3 MG/DL (0.2-1.0); BLOOD UREA NITROGEN 17 MG/DL (7-18); CALCIUM LEVEL 7.6 MG/DL (8.8-10.2); CARBON DIOXIDE LEVEL 23 MEQ/L (21-32); CHLORIDE LEVEL 104 MEQ/L (98-107); FERRITIN 4120 NG/ML (26-388); GLOMERULAR FILTRATION RATE > 60.0 (>49); GLUCOSE, FASTING 88 MG/DL (70-100); LDH LACTATE DEHYDROGENASE 773 U/L (87-241); POTASSIUM SERUM 4.3 MEQ/L (3.5-5.1); SODIUM LEVEL 138 MEQ/L (136-145); TOTAL PROTEIN 5.3 GM/DL (6.4-8.2)
[2021-06-15] MEDS: NS 1,000 ML IV SCH ×2 (08:22→19:00)
--- NOTE | 2021-06-15 08:23 | REP ---
INDICATION: Hypoxia COMPARISON: 06/13/2021 TECHNIQUE: Portable AP view of the chest FINDINGS: Primarily left-sided opacities and consolidations along with medial and basilar right-sided opacities are again identified and similar to prior examination. No significant change noted. No pneumothorax. IMPRESSION: Bilateral opacities and consolidations (left greater than right) essentially unchanged. <Electronically signed by Brando Douglas > 06/15/21 0819
[2021-06-15] MEDS: BARICITINIB 2MG TABLET (OLUMIANT) FOR EUA PO SCH (09:04)
[2021-06-15] MEDS: guaiFENesin ER 600 MG TAB PO SCH ×2 (09:04→21:37)
[2021-06-15] MEDS: ASPIRIN 81MG ENTERIC TABLET PO SCH (09:04)
[2021-06-15] MEDS: ENOXAPARIN 60MG/0.6ML SYRINGE (J1650 PER 10MG) SC SCH ×2 (09:07→21:37)
[2021-06-15] MEDS: PANTOPRAZOLE 40MG VIAL (C9113 PER 1) IV SCH (09:09)
--- NOTE | 2021-06-15 09:23 | IPNPDOC ---
Text Note Date of Service The patient was seen on 06/15/21. NOTE Subjective: Patient is a 60-year-old male with a PMHx of Obesity who presented to the ER on 06/03 with complaints of SOB / Dry cough / Fevers. Patient is unvaccinated and reports multiple family members who had COVID19 infections. In the emergency room, patient was found to be COVID19 positive and was admitted to the hospitalist service for further evaluation and treatment. Patient was seen and examined at the bedside. Patient is a uneventful evening. He denies any nausea, vomiting, abdominal pain, diarrhea, or urinary discomfort. Patient reports that his breathing is doing relatively fine, however, the second he takes off CPAP mask his saturation drops significantly. Patient denies any chest pain, denies any significant cough this morning. Objective: Vitals (See below) General: Patient appears to be sitting up in bed, not in any acute distress, awake, alert, oriented 3 HEENT: nc, at CVS: +S1S2 Lungs: Air flow is fair bilaterally. No evidence of crackles, wheezing or rhonchi Abdomen: Remains soft without any significant distention or tenderness Extremities: No edema appreciated Imaging: CXR 06/03: Multifocal infiltrates (left greater than right). CXR 06/09: Worsened opacities on the left as described above. CXR 06/11: Stable bilateral infiltrates, left greater than right. CXR 06/13: Fairly extensive bilateral infiltrates consistent with pneumonia. Radiographically more prominent than on June 11, 2021. Assessment and plan: Acute hypoxic respiratory failure - likely 2/2 COVID-19 pneumonia, possibly 2/2 superimposed bacterial infection - Appears comfortable laying on his side in bed, reports cough with reduction of sputum production - CPAP in place; FIO2 requirement has improved - Inflammatory markers have been variable; PCT pending this morning - noted to have trended up yesterday - MRSA screen 06/12: Negative - Imaging noted above - c/w Baricitinib (Day #12); s/p Remdesivir (Completed 5 days); s/p Dexamethasone (Completed 10 days) - c/w Zosyn (Day #4); s/p Vancomycin x 1 dose (06/12); s/p Ceftriaxone / Azithromycin (Completed 8 days) - c/w incentive spirometry / acapella / Mucinex - Pulmonology on consultation; appreciate their input Leukocytosis - possibly 2/2 superimposed bacterial infection - Blood cultures 06/12: No growth at 72 hours - UA 06/12 negative - Sputum cultures 06/12: (Gram stain: few gram positive cocci in chains, few gram negative rods, few yeast like organisms) - Imaging noted above - c/w Gentle IV fluid hydration - c/w Antibiotic coverage as stated above s/p Bacteremia - likely 2/2 contaminant - Both blood cultures were drawn at the same time (06/04 at 01:01AM); Staphylococcus epidermides, staphylococcus haemolyticus - Repeat blood cultures 06/04: No growth at 5 days s/p Transaminitis s/p Hyperkalemia Overweight - BMI of 28.8 - Complicating medical care GI prophylaxis - c/w Protonix IV DVT prophylaxis - c/w Lovenox weight-based prophylactic dosing Disposition: - Pending improvement patient's oxygenation VS,Fishbone, I+O VS, Fishbone, I+O Laboratory Tests 06/14/21 09:09 06/14/21 09:10 06/15/21 04:11 Vital Signs Date Time Temp Pulse Resp B/P (MAP) Pulse Ox O2 Delivery O2 Flow Rate FiO2 06/15/21 07:24 90 06/15/21 06:30 86 93 06/15/21 06:10 98.7 06/15/21 06:00 12.0 06/15/21 06:00 109/65 (80) 06/15/21 04:00 28 NIPPV (BIPAP/CPAP) I&O- Last 24 Hours up to 6 AM 06/15/21 05:59 Intake Total 1480 ml Output Total 1245 ml Balance 235 ml DOMINIC CASTILLO MD Jun 15, 2021 09:23
[2021-06-15] MEDS: ACETAMINOPHEN 650 MG SUPP PR PRN (22:19)
[2021-06-16] VITALS (12 sets, daily range): BP systolic 123–181; BP diastolic 58–79
[2021-06-16] MEDS: PIPERACILLIN/TAZOBACTAM SOD 3.375 GM in D5W MINI-BAG PLUS 50 ML IV SCH ×4 (02:47→20:55)
[2021-06-16] MEDS: LORazepam 2 MG/ML VIAL IV PRN ×3 (03:28→18:30)
[2021-06-16] MEDS: ACETAMINOPHEN 650 MG SUPP PR PRN ×2 (03:28→09:50)
[2021-06-16 06:17] LABS: BASO % 0.1 % (0.0-1.0); EOS # 0.1 10^3/uL (0.0-0.5); EOS % 0.6 % (0.0-3.0); HEMATOCRIT 32.6 % (42.0-52.0); HEMOGLOBIN 11.4 g/dl (13.5-17.5); LYMPH # 0.4 10^3/uL (1.5-5.0); LYMPH % 3.1 % (24.0-44.0); MEAN CORPUSCULAR HEMOGLOBIN 31.7 pg (27.0-33.0); MEAN CORPUSCULAR VOLUME 90.6 fl (80.0-96.0); MONO # 0.3 10^3/uL (0.0-0.8); MONO % 2.6 % (2.0-8.0); NEUTROPHILS # 12.1 10^3/uL (1.5-8.5); NEUTROPHILS % 92.5 % (36.0-66.0); PLATELET COUNT, AUTOMATED 316 10^3/uL (150-450); WHITE BLOOD COUNT 13.1 10^3/uL (4.0-10.0)
[2021-06-16 06:43] LABS: ALBUMIN 1.3 GM/DL (3.2-5.2); ALT/SGPT 45 U/L (12-78); BILIRUBIN,TOTAL 1.1 MG/DL (0.2-1.0); BLOOD UREA NITROGEN 17 MG/DL (7-18); CALCIUM LEVEL 7.7 MG/DL (8.8-10.2); CARBON DIOXIDE LEVEL 25 MEQ/L (21-32); CHLORIDE LEVEL 104 MEQ/L (98-107); CREATININE FOR GFR 0.63 MG/DL (0.70-1.30); GLOMERULAR FILTRATION RATE > 60.0 (>49); GLUCOSE, FASTING 98 MG/DL (70-100); SODIUM LEVEL 137 MEQ/L (136-145); TOTAL PROTEIN 5.4 GM/DL (6.4-8.2)
[2021-06-16] MEDS: ASPIRIN 81MG ENTERIC TABLET PO SCH (09:32)
[2021-06-16] MEDS: BARICITINIB 2MG TABLET (OLUMIANT) FOR EUA PO SCH (09:32)
[2021-06-16] MEDS: guaiFENesin ER 600 MG TAB PO SCH ×2 (09:32→20:56)
[2021-06-16] MEDS: ENOXAPARIN 60MG/0.6ML SYRINGE (J1650 PER 10MG) SC SCH ×2 (09:33→20:56)
[2021-06-16] MEDS: PANTOPRAZOLE 40MG VIAL (C9113 PER 1) IV SCH (09:33)
[2021-06-16] MEDS: NS 1,000 ML IV SCH ×2 (13:54→20:55)
[2021-06-16] MEDS ORDERED: LORazepam 2 MG/ML VIAL IV STA ×2 (15:18→23:49)
--- NOTE | 2021-06-16 15:57 | IPNPDOC ---
Text Note Date of Service The patient was seen on 06/16/21. NOTE Subjective: 60M with PMHx of Obesity who presented to the ER on 06/03 with complaints of SOB / Dry cough / Fevers. Patient is unvaccinated and reports multiple family members who had COVID19 infections. In the emergency room, patient was found to be COVID19 positive and was admitted to the hospitalist service for further evaluation and treatment. Patient was seen and examined at the bedside. He is tachypneic with accessory muscle use. Consideration was made for intubation. He declined to be intubated and opted for DNR/DNI status. Objective: Vital Signs: reviewed General: NAD, lying comfortably in bed HEENT: NC/AT, EOMI Neck: supple, no masses Chest: diminished breath sounds, tachypneic Heart: +S1S2, tachycardic Abd: soft, NT, ND, +BS Ext: no edema Skin: no rashes MSK: full ROM at large joints Neuro: no gross focal deficits Psych: AAOx3 Assessment and plan: #Acute hypoxic respiratory failure - likely 2/2 COVID-19 pneumonia, possibly 2/2 superimposed bacterial infection - Inflammatory markers have been variable; PCT pending this morning - noted to have trended up yesterday - MRSA screen 06/12: Negative - Imaging noted above - c/w Baricitinib (Day #13); s/p Remdesivir (Completed 5 days); s/p Dexamethasone (Completed 10 days) - c/w Zosyn (Day #5); s/p Vancomycin x 1 dose (3); s/p Ceftriaxone / Azithromycin (Completed 8 days) - c/w incentive spirometry / acapella / Mucinex - Pulmonology on consultation; appreciate their input #Leukocytosis - possibly 2/2 superimposed bacterial infection - Blood cultures 06/12: No growth at 72 hours - UA 06/12 negative - Sputum cultures 06/12: (Gram stain: few gram positive cocci in chains, few gram negative rods, few yeast like organisms) - Imaging noted above - c/w Gentle IV fluid hydration - c/w Antibiotic coverage as stated above #s/p Bacteremia - likely 2/2 contaminant - Both blood cultures were drawn at the same time (06/04 at 01:01AM); Staphylococcus epidermides, staphylococcus haemolyticus - Repeat blood cultures 06/04: No growth at 5 days #s/p Transaminitis #s/p Hyperkalemia #Overweight - BMI of 28.8 - Complicating medical care #GI prophylaxis - c/w Protonix IV DVT prophylaxis - c/w Lovenox weight-based prophylactic dosing #Code Status - DNR/DNI Disposition: -Extensive discussion at bedside with patient and nursing staff regarding advanced directives. Patient has opted to be DNR/DNI. His family was contacted including fianc and brother extensive discussion with family regarding his prognosis and current plan of care. VS,Fishbone, I+O VS, Fishbone, I+O Laboratory Tests 06/16/21 05:56 Vital Signs Date Time Temp Pulse Resp B/P (MAP) Pulse Ox O2 Delivery O2 Flow Rate FiO2 06/16/21 13:00 109 36 92 NIPPV (BIPAP/CPAP) 100 06/16/21 12:00 12.0 06/16/21 12:00 100.1 147/78 (101) I&O- Last 24 Hours up to 6 AM 06/16/21 06:00 Intake Total 2070 ml Output Total 915 ml Balance 1155 ml ASHWIN NICOLAS MD Jun 16, 2021 15:57
[2021-06-17] VITALS: BP 150/80
[2021-06-17 01:43] VITALS: BP 164/75
[2021-06-17 02:00] VITALS: BP 169/78
[2021-06-17] MEDS ORDERED: ACETAMINOPHEN *IV* 1,000 MG in IV 1 EA IV ONE (02:05)
[2021-06-17] MEDS ORDERED: MORPHINE 2 MG/ML 1ML VIAL (J2270) IV PRN ×2 (02:35→04:35)
[2021-06-17] MEDS: PIPERACILLIN/TAZOBACTAM SOD 3.375 GM in D5W MINI-BAG PLUS 50 ML IV SCH (02:54)
[2021-06-17 03:09] VITALS: BP 152/64
[2021-06-17 03:11] VITALS: BP 134/68
[2021-06-17] MEDS: LORazepam 2 MG/ML VIAL IV PRN (03:23)
[2021-06-17 04:00] VITALS: BP 126/69
[2021-06-17] MEDS ORDERED: ENOXAPARIN 100MG/1ML SYRINGE (J1650 PER 10MG) SC SCH (04:00)
[2021-06-17] MEDS ORDERED: SCOPOLAMINE 1MG TRANSDERMAL PATCH TOP PRN (04:35)
[2021-06-17] MEDS ORDERED: ONDANSETRON 4MG/2ML VIAL IV PRN (04:35)
[2021-06-17] MEDS ORDERED: BISACODYL 10 MG SUPP PR PRN (04:35)
[2021-06-17] MEDS ORDERED: FLEET ENEMA PR PRN (04:35)
[2021-06-17] MEDS ORDERED: HYOSCYAMINE SULFATE 0.125 MG SUBL TABLET PO PRN (04:35)
[2021-06-17] MEDS ORDERED: ATROPINE SULFATE 1% OP SOLN 2 ML BTL SL PRN (04:35)
--- NOTE | 2021-06-17 05:36 | IPNPDOC ---
Date Seen The patient was seen on 06/17/21. Progress Note Called by RN as patient is saturating at 83% on Bipap 25/04, with a resp rate of > 30. Patient is confused, but has brief intermitted moments of lucidity. Chart review shows patient decided for DNR/DNI status. Patient's fiance Rita Lee and patient's brother Gerber were informed of the patient's decline. Given concern about patient's worsening respiratory fatigue, they were asked to visit with him. Myself and RN Gale Ramesh met with Rita and Gerber in the ICU. Patient's overall prognosis is grave. I was asked to administer ivermectin, but I explained that it is not the standard of care, and is unable to be administered. Patient is visibly struggling on Bipap, and has difficulty mainta ining saturation. Rita and Gerber have made the decision to make Mr. Clancy comfortable and for him to no longer suffer and to pass peacefully. MOLST form was signed and witnessed. R[facility] [employer] orders placed. VS, I&O, 24H, Anselmo Vital Signs/I&O Vital Signs Date Time Temp Pulse Resp B/P (MAP) Pulse Ox O2 Delivery O2 Flow Rate FiO2 06/17/21 05:04 24 06/17/21 03:09 101.2 141 152/64 (93) 84 06/17/21 00:00 NIPPV (BIPAP/CPAP) 100 06/16/21 12:00 12.0 I&O- Last 24 Hours up to 6 AM 06/17/21 06:00 Intake Total 1450 ml Output Total 900 ml Balance 550 ml Laboratory Data 24H LABS Laboratory Tests 2 06/16/21 05:56: Immature Granulocyte % (Auto) 1.1, Neutrophils (%) (Auto) 92.5H, Lymphocytes (%) (Auto) 3.1L, Monocytes (%) (Auto) 2.6, Eosinophils (%) (Auto) 0.6, Basophils (%) (Auto) 0.1, Neutrophils # (Auto) 12.1H, Lymphocytes # (Auto) 0.4L, Monocytes # (Auto) 0.3, Eosinophils # (Auto) 0.1, Basophils # (Auto) 0.0, Nucleated Red Blood Cells % (auto) 0.0, Anion Gap 8, Glomerular Filtration Rate > 60.0, Calcium Level 7.7L, Total Bilirubin 1.1H, Aspartate Amino Transf (AST/SGOT) 43H, Alanine Aminotransferase (ALT/SGPT) 45, Alkaline Phosphatase 115, Total Protein 5.4L, Albumin 1.3L, Albumin/Globulin Ratio 0.3 06/17/21 02:15: Bedside Glucose (Misc Panel) 120H CBC/BMP Laboratory Tests 06/16/21 05:56 Microbiology Microbiology 06/12/21 Gram Stain - Final, Complete 06/12/21 Sputum Culture - Final, Complete Yeast Like Organism 06/12/21 Blood Culture - Preliminary, Resulted No Growth after 72 hours. All specime... 06/12/21 Blood Culture - Preliminary, Resulted No Growth after 72 hours. All specime... NICOL BANEGAS MD Jun 17, 2021 05:36
[2021-06-17 06:55] LABS: RSV AMPLIFICATION NEGATIVE (NEGATIVE)
== END 2021-06-17 05:30 | disposition expired | DRG 177 ==
LOC: M ED 18:50 → EDBD 18:50 → M ED INP 23:25 → ENRESERV 06-04 02:23 → M 4MAIN 06-04 03:15 → M ICU 06-09 11:42
PROVIDERS: ADMIT Internal Medicine; ATTEND Family Medicine
PROC: XW033E5 Introduction of Remdesivir Anti-infective into Peripheral Vein, Percutaneous Approach, New Technology Group 5 (ICD-10-PCS; principal; 2021-06-03)
PROC: 3E0333Z Introduction of Anti-inflammatory into Peripheral Vein, Percutaneous Approach (ICD-10-PCS; 2021-06-03)
DX: U07.1 COVID-19 (principal); J96.01 Acute respiratory failure with hypoxia; J12.82 Pneumonia due to coronavirus disease 2019; R09.02 Hypoxemia; E87.5 Hyperkalemia; R74.01 Elevation of levels of liver transaminase levels; E66.3 Overweight; Z51.5 Encounter for palliative care; Z66 Do not resuscitate; Z87.891 Personal history of nicotine dependence; Z79.899 Other long term (current) drug therapy; Z68.28 Body mass index [BMI] 28.0-28.9, adult